=== PATIENT | female | born 1995 | race African-American/Black ===

== ENCOUNTER 2017-10-15 07:15 | Emergency (ER) | payer OTHER ==
[~2017-10-15] VITALS: Ht 170.2 cm; Wt 59.0 kg
--- NOTE | 2017-10-15 07:35 | PHYS DOC ---
Adult General Chief Complaint Chief Complaint: ABDOMINAL PAIN HPI HPI Patient is a 22 year old female presents to the ED complaining of abdominal pain for 2 weeks. States the pain feels all over. Describes it as crampy. Rates it as 4-10. Associated symptoms include constipation. States she has a history of constipation. Last stool was 4-5 days ago. Recently diagnosed with a UTI a few days ago at a urgent care. LMP was Sep 14. States the stool was hard. Denies dysuria, hematuria, blood in stool, chest pain, shortness of breath, dizziness, weakness, n/v, fever or flu like symptoms. Review of Systems Review of Systems Constitutional: Denies fever or chills [] Eyes: Denies change in visual acuity, redness, or eye pain [] HENT: Denies nasal congestion or sore throat [] Respiratory: Denies cough or shortness of breath [] Cardiovascular: No additional information not addressed in HPI [] GI: Complains of abdominal pain. Denies nausea, vomiting, bloody stools or diarrhea [] : Denies dysuria or hematuria [] Musculoskeletal: Denies back pain or joint pain [] Integument: Denies rash or skin lesions [] Neurologic: Denies headache, focal weakness or sensory changes [] Endocrine: Denies polyuria or polydipsia [] All other systems were reviewed and found to be within normal limits, except as documented in this note. Current Medications Current Medications Current Medications Medications (Trade) Dose Ordered Sig/Khadar Start Time Stop Time Status Last Admin Dose Admin Ceftriaxone Sodium 50 ml @ 100 mls/hr 1X ONCE 10/15/17 08:15 10/15/17 08:44 DC 10/15/17 08:26 100 MLS/HR Famotidine (Pepcid Vial) 20 mg 1X ONCE 10/15/17 08:00 10/15/17 08:01 DC 10/15/17 07:58 20 MG Allergies Allergies Allergies Coded Allergies Type Severity Reaction Last Updated Verified No Known Drug Allergies 10/15/17 No Physical Exam Physical Exam Constitutional: Well developed, well nourished, no acute distress, non-toxic appearance. [] HENT: Normocephalic, atraumatic, bilateral external ears normal, oropharynx moist, no oral exudates, nose normal. [] Eyes: PERRLA, EOMI, conjunctiva normal, no discharge. [] Neck: Normal range of motion, no tenderness, supple, no stridor. [] Cardiovascular:Heart rate regular rhythm, no murmur [] Lungs & Thorax: Bilateral breath sounds clear to auscultation [] Abdomen: Bowel sounds normal, soft, no tenderness, no masses, no pulsatile masses. [] Skin: Warm, dry, no erythema, no rash. [] Back: No tenderness, no CVA tenderness. [] Extremities: No tenderness, no cyanosis, no clubbing, ROM intact, no edema. [] Neurologic: Alert and oriented X 3, normal motor function, normal sensory function, no focal deficits noted. [] Psychologic: Affect normal, judgement normal, mood normal. [] Current Patient Data Vital Signs Vital Signs Date Time Temp Pulse Resp B/P (MAP) Pulse Ox O2 Delivery O2 Flow Rate FiO2 10/15/17 08:04 91 106/64 (78) 98 Room Air 10/15/17 07:15 98.0 16 98.0 Lab Values Laboratory Tests Test 10/15/17 07:20 10/15/17 07:24 10/15/17 07:40 Urine Collection Type Unknown Urine Color Angelic Urine Clarity Cloudy Urine pH 6.0 Urine Specific [place] >=1.030 Urine Protein 100 mg/dL (NEG-TRACE) Urine Glucose (UA) Negative mg/dL (NEG) Urine Ketones (Stick) Trace mg/dL (NEG) Urine Blood Moderate (NEG) Urine Nitrite Positive (NEG) Urine Bilirubin Small (NEG) Urine Urobilinogen Dipstick 1.0 mg/dL (0.2 mg/dL) Urine Leukocyte Esterase Large (NEG) Urine RBC 3-5 /HPF (0-2) Urine WBC >40 /HPF (0-4) Urine Squamous Epithelial Cells Few /LPF Urine Bacteria Mod /HPF (0-FEW) Urine Mucus Mod /LPF POC Urine HCG, Qualitative Hcg negative (Negative) White Blood Count 5.9 x10^3/uL (4.0-11.0) Red Blood Count 4.40 x10^6/uL (3.50-5.40) Hemoglobin 12.4 g/dL (12.0-15.5) Hematocrit 36.5 % (36.0-47.0) Mean Corpuscular Volume 83 fL (79-100) Mean Corpuscular Hemoglobin 28 pg (25-35) Mean Corpuscular Hemoglobin Concent 34 g/dL (31-37) Red Cell Distribution Width 12.7 % (11.5-14.5) Platelet Count 211 x10^3/uL (140-400) Sodium Level 138 mmol/L (136-145) Potassium Level 3.7 mmol/L (3.5-5.1) Chloride Level 104 mmol/L (98-107) Carbon Dioxide Level 27 mmol/L (21-32) Anion Gap 7 (6-14) Blood Urea Nitrogen 10 mg/dL (7-20) Creatinine 0.8 mg/dL (0.6-1.0) Estimated GFR (Cockcroft-Gault) 109.6 BUN/Creatinine Ratio 13 (6-20) Glucose Level 94 mg/dL (70-99) Calcium Level 8.9 mg/dL (8.5-10.1) Total Bilirubin 0.6 mg/dL (0.2-1.0) Aspartate Amino Transferase (AST) 11 U/L (15-37) L Alanine Aminotransferase (ALT) 13 U/L (14-59) L Alkaline Phosphatase 48 U/L (46-116) Total Protein 7.5 g/dL (6.4-8.2) Albumin 3.5 g/dL (3.4-5.0) Albumin/Globulin Ratio 0.9 (1.0-1.7) L Lipase 101 U/L (73-393) Laboratory Tests 10/15/17 07:40 Laboratory Tests 10/15/17 07:40 EKG EKG [] Radiology/Procedures Radiology/Procedures PROCEDURE: ACUTE ABDOMEN SERIES Acute abdomen series with chest, 3 views, 10/15/2017: History: Lower abdominal pain and nausea The abdominal gas pattern is unremarkable without evidence of obstruction. No free air is seen in the abdomen. There is no evidence of organomegaly or abnormal abdominal calcification. The heart size is normal. The lungs are clear. There is no evidence of pleural fluid. A minimal thoracic scoliosis may be positional. IMPRESSION: No acute abdominal abnormality is detected. Course & Med Decision Making Course & Med Decision Making Pertinent Labs and Imaging studies reviewed. (See chart for details) []Rocephin given in ED for urinary tract infection. Patient taking bactrim outpatient. Labs and imaging discussed. Patient's pain improved. Vital stable, no acute distress. On reexamination, abdomen is soft nontender nondistended. No peritoneal signs. Tolerating by mouth. Discussed follow-up with GI this week. Provided contact information/education. Discussed reasons to return to the ED. Patient understands and agrees with plan. Family at bedside. Dragon Disclaimer Dragon Disclaimer This electronic medical record was generated, in whole or in part, using a voice recognition dictation system. Departure Departure Impression: Primary Impression: Urinary tract infection Additional Impression: Constipation Disposition: 01 HOME, SELF-CARE Condition: IMPROVED Referrals: TANNER MIRZA MD Patient Instructions: Constipation, Adult, Urinary Tract Infection Scripts Polyethylene Glycol 3350 (MIRALAX) 17 Gm Powd.pack 1 PACKET PO DAILY, #30 PACKET 0 Refills Prov: NE CASTANEDA 10/15/17 Problem Qualifiers NE CASTANEDA Oct 15, 2017 07:35
[2017-10-15 07:36] LABS: BILIRUBIN,URINE SMALL (NEG); GLUCOSE,URINE NEGATIVE (NEG); NITRITE,URINE POSITIVE (NEG); PROTEIN,URINE 100 mg/dL (NEG-TRACE)
[2017-10-15 07:50] LABS: BACTERIA,URINE MOD /HPF (0-FEW); SQUAMOUS EPITHELIAL CELL,UR FEW /LPF; WBC,URINE >40 /HPF (0-4)
[2017-10-15 07:51] LABS: HEMATOCRIT 36.5 % (36.0-47.0); HEMOGLOBIN 12.4 g/dL (12.0-15.5); RED BLOOD COUNT 4.4 x10^6/uL (3.50-5.40); RED CELL DISTRIBUTION WIDTH 12.7 % (11.5-14.5); WHITE BLOOD COUNT 5.9 x10^3/uL (4.0-11.0)
[2017-10-15 07:59] LABS: CALCIUM 8.9 mg/dL (8.5-10.1); CREATININE 0.8 mg/dL (0.6-1.0); GFR 109.6; POTASSIUM 3.7 mmol/L (3.5-5.1)
[2017-10-15] MEDS ORDERED: FAMOTIDINE 20 MG/2 ML VIAL IVP ONE (08:00)
--- NOTE | 2017-10-15 08:00 | RAD ---
Acute abdomen series with chest, 3 views, 10/15/2017: History: Lower abdominal pain and nausea The abdominal gas pattern is unremarkable without evidence of obstruction. No free air is seen in the abdomen. There is no evidence of organomegaly or abnormal abdominal calcification. The heart size is normal. The lungs are clear. There is no evidence of pleural fluid. A minimal thoracic scoliosis may be positional. IMPRESSION: No acute abdominal abnormality is detected.
[2017-10-15 08:04] VITALS: BP 106/64
[2017-10-15 08:05] LABS: ALBUMIN 3.5 g/dL (3.4-5.0); ALBUMIN/GLOBULIN RATIO 0.9 (1.0-1.7); TOTAL BILIRUBIN 0.6 mg/dL (0.2-1.0); TOTAL PROTEIN 7.5 g/dL (6.4-8.2)
[2017-10-15] MEDS ORDERED: POLY17PO29 PO (08:20)
== END 2017-10-15 09:00 | disposition home or self-care (01) ==
LOC: ER 07:15
DX: N39.0 Urinary tract infection, site not specified (principal); K59.00 Constipation, unspecified
CPT/HCPCS: 36415; 74022; 80053; 81001; 81025; 83690; 85027; 96365; 96375; 99285; J0690; S0028; 99284-25

== ENCOUNTER 2017-10-16 14:52 | Inpatient (IN) | payer OTHER ==
[2017-10-16] VITALS (12 sets, daily range): BP systolic 104–122; BP diastolic 58–79
[~2017-10-16] VITALS: Ht 172.7 cm; Wt 57.2 kg
[~2017-10-16 14:52] MED LIST: POLY17PO29 PO
[2017-10-16] MEDS ORDERED: HYDROcodone/APAP 5/325MG 1 TAB TABLET PO ONE (15:15)
[2017-10-16] MEDS ORDERED: KETOROLAC 30 MG/ML INJ. IV ONE (15:15)
--- NOTE | 2017-10-16 15:16 | EKG ---
[facility] [address] [place] [address] Test Date: 2017-10-16 Test Time: 15:01:59 Pat Name: MELE FRANKEL Department: Room: Gender: F [employer] Consultant: : 1995 Requested By: GAVIN PATEL Order Number: [id number] Reading MD: Measurements Intervals [place] Rate: 104 P: -90 RI: 106 QRS: 56 QRSD: 94 T: 46 QT: 318 QTc: 424 Interpretive Statements SINUS TACHYCARDIA INCOMPLETE RIGHT BUNDLE BRANCH BLOCK T ABNORMALITY IN ANTEROSEPTAL LEADS ABNORMAL ECG No previous ECG available for comparison
[2017-10-16 15:30] LABS: BASO % 0 % (0-3); EOS % 3 % (0-3); HEMATOCRIT 36.4 % (36.0-47.0); HEMOGLOBIN 12.2 g/dL (12.0-15.5); LYMPH # 1.5 x10^3/uL (1.0-4.8); LYMPH % 24 % (24-48); MEAN CORPUSCULAR HEMOGLOBIN 28 pg (25-35); MEAN CORPUSCULAR HGB CONC 34 g/dL (31-37); MEAN CORPUSCULAR VOLUME 83 fL (79-100); MONO % 7 % (0-9); NEUT % 66 % (31-73); PLATELET COUNT 217 x10^3/uL (140-400); RED BLOOD COUNT 4.39 x10^6/uL (3.50-5.40); RED CELL DISTRIBUTION WIDTH 12.6 % (11.5-14.5); WHITE BLOOD COUNT 6.3 x10^3/uL (4.0-11.0)
--- NOTE | 2017-10-16 15:30 | PHYS DOC ---
Past Medical History Past Medical History: No Pertinent History Past Surgical History: No Surgical History Alcohol Use: None Drug Use: None Adult General Chief Complaint Chief Complaint: CHEST PAIN-NON CARDIAC NATURE HPI HPI Patient is a 22 year old female presenting to the emergency department for evaluation of right-sided sharp chest pain that has been going on for weeks however it is worse since yesterday. She says the pain is sharp right lower chest and associated with nausea but no fevers chills vomiting shortness of breath. She says that she has not been coughing and that she has been in her usual state of health except she is taking an antibiotic currently. She says it hurts when she moves in certain positions such as bending over makes the pain worse. She says that she is healthy and takes no medications except for the antibiotic and control. She is in no obvious distress with normal vital signs except mild tachycardia at 105. Review of Systems Review of Systems Constitutional: Denies fever or chills [] HENT: Denies nasal congestion or sore throat [] Respiratory: Denies cough or shortness of breath [] Cardiovascular: + CP GI: Denies abdominal pain. + nausea. No vomiting, bloody stools or diarrhea [] All other systems were reviewed and found to be within normal limits, except as documented in this note. Current Medications Current Medications Current Medications Medications (Trade) Dose Ordered Sig/Khadar Start Time Stop Time Status Last Admin Dose Admin Acetaminophen/ Hydrocodone Bitart (Lortab 5/325) 1 tab 1X ONCE 10/16/17 15:15 10/16/17 15:16 DC 10/16/17 15:25 1 TAB Fentanyl Citrate (Fentanyl 2ml Vial) 50 mcg PRN Q2HR PRN 10/16/17 18:00 10/17/17 17:59 Heparin Sodium (Porcine) (Heparin Sodium) 900 unit PRN Q6HRS PRN 10/16/17 18:00 Heparin Sodium/ Dextrose 500 ml @ 0 mls/hr CONT PRN 10/16/17 18:00 10/16/17 18:13 0 MLS/HR Info (Anti-Coagulation Monitoring By Pharmacy) 1 each PRN DAILY PRN 10/16/17 18:00 Info (Do NOT chart on this entry -- for MONITORING) 1 each PRN DAILY PRN 10/16/17 16:45 10/18/17 16:44 Iohexol (Omnipaque 300 Mg/ml) 75 ml 1X ONCE 10/16/17 16:45 10/16/17 16:46 DC 10/16/17 17:03 75 ML Ketorolac Tromethamine (Toradol) 30 mg 1X ONCE 10/16/17 15:15 10/16/17 15:16 DC 10/16/17 15:26 30 MG Ondansetron HCl (Zofran) 4 mg PRN Q8HRS PRN 10/16/17 18:00 10/17/17 17:59 Allergies Allergies Allergies Coded Allergies Type Severity Reaction Last Updated Verified No Known Drug Allergies 10/15/17 No Physical Exam Physical Exam Constitutional: Well developed, well nourished, no acute distress, non-toxic appearance. [] Cardiovascular:Heart rate regular rhythm, no murmur [] Lungs & Thorax: Bilateral breath sounds clear to auscultation. + R lower chest ttp. Abdomen: Bowel sounds normal, soft, no tenderness, no masses, no pulsatile masses. [] Current Patient Data Vital Signs Vital Signs Date Time Temp Pulse Resp B/P (MAP) Pulse Ox O2 Delivery O2 Flow Rate FiO2 10/16/17 17:40 95 22 100/69 (79) 100 Room Air 10/16/17 14:54 98.0 98.0 Lab Values Laboratory Tests Test 10/16/17 15:20 White Blood Count 6.3 x10^3/uL (4.0-11.0) Red Blood Count 4.39 x10^6/uL (3.50-5.40) Hemoglobin 12.2 g/dL (12.0-15.5) Hematocrit 36.4 % (36.0-47.0) Mean Corpuscular Volume 83 fL (79-100) Mean Corpuscular Hemoglobin 28 pg (25-35) Mean Corpuscular Hemoglobin Concent 34 g/dL (31-37) Red Cell Distribution Width 12.6 % (11.5-14.5) Platelet Count 217 x10^3/uL (140-400) Neutrophils (%) (Auto) 66 % (31-73) Lymphocytes (%) (Auto) 24 % (24-48) Monocytes (%) (Auto) 7 % (0-9) Eosinophils (%) (Auto) 3 % (0-3) Basophils (%) (Auto) 0 % (0-3) Neutrophils # (Auto) 4.2 x10^3uL (1.8-7.7) Lymphocytes # (Auto) 1.5 x10^3/uL (1.0-4.8) Monocytes # (Auto) 0.4 x10^3/uL (0.0-1.1) Eosinophils # (Auto) 0.2 x10^3/uL (0.0-0.7) Basophils # (Auto) 0.0 x10^3/uL (0.0-0.2) Prothrombin Time 13.3 SEC (11.7-14.0) Prothrombin Time INR 1.1 (0.8-1.1) PTT 27 SEC (24-38) D-Dimer (Liz) 2.03 ug/mlFEU (0.00-0.50) H Sodium Level 140 mmol/L (136-145) Potassium Level 3.4 mmol/L (3.5-5.1) L Chloride Level 104 mmol/L (98-107) Carbon Dioxide Level 25 mmol/L (21-32) Anion Gap 11 (6-14) Blood Urea Nitrogen 9 mg/dL (7-20) Creatinine 0.9 mg/dL (0.6-1.0) Estimated GFR (Cockcroft-Gault) 95.6 BUN/Creatinine Ratio 10 (6-20) Glucose Level 112 mg/dL (70-99) H Calcium Level 8.9 mg/dL (8.5-10.1) Magnesium Level 2.1 mg/dL (1.8-2.4) Total Bilirubin 0.6 mg/dL (0.2-1.0) Aspartate Amino Transferase (AST) 11 U/L (15-37) L Alanine Aminotransferase (ALT) 12 U/L (14-59) L Alkaline Phosphatase 55 U/L (46-116) Troponin I Quantitative < 0.017 ng/mL (0.000-0.055) Total Protein 7.7 g/dL (6.4-8.2) Albumin 3.5 g/dL (3.4-5.0) Albumin/Globulin Ratio 0.8 (1.0-1.7) L Lipase 129 U/L (73-393) Laboratory Tests 10/16/17 15:20 Laboratory Tests 12/7/17 15:20 EKG EKG Sinus tachycardia at 105 bpm with incomplete right bundle branch block with inverted T waves in leads V1 through V3. Radiology/Procedures Radiology/Procedures Portable chest, 10/16/2017: History: Right-sided chest pain The heart size and pulmonary vascularity are normal. The lungs are clear. There is no evidence of pleural fluid. IMPRESSION: No acute cardiopulmonary abnormality is detected. DICTATED and SIGNED BY: RACHNA LIRA MD DATE: 10/16/17 1528 Course & Med Decision Making Course & Med Decision Making Given patient is mildly tachycardic and on control she will get labs including d-dimer and be treated with Toradol as this is likely more of a pleurisy. Patient had a positive d-dimer so CT angios was obtained which revealed bilateral subsegmental PE with right lower lobe infarct. I spoke to the hospitalist on-call, Dr. Solorzano and he agreed to admit patient and asked me to order bilateral lower external ear ultrasound heparin drip and admit her to the ICU. And is nontoxic in her vital signs are improving is now her heart rate is 90 and her oxygen continues to be 100%. Patient admitted to ICU in guarded condition. Dragon Disclaimer Dragon Disclaimer This electronic medical record was generated, in whole or in part, using a voice recognition dictation system. Departure Departure Impression: Primary Impression: Pulmonary embolism Disposition: ADMITTED INPATIENT Admitting Physician: Other (MERARI) Condition: GUARDED Referrals: ROSEANNA RAMIREZ (PCP) Problem Qualifiers Primary Impression: Pulmonary embolism Pulmonary embolism type: other Chronicity: acute Acute cor pulmonale presence: without acute cor pulmonale Qualified Codes: I26.99 - Other pulmonary embolism without acute cor pulmonale GAVIN PATEL DO Oct 16, 2017 15:30
[2017-10-16 15:39] LABS: INR 1.1 (0.8-1.1); PROTHROMBIN TIME PATIENT 13.3 SEC (11.7-14.0)
[2017-10-16 15:45] LABS: CALCIUM 8.9 mg/dL (8.5-10.1); CREATININE 0.9 mg/dL (0.6-1.0); GFR 95.6; POTASSIUM 3.4 mmol/L (3.5-5.1)
[2017-10-16 15:52] LABS: ALBUMIN 3.5 g/dL (3.4-5.0); ALBUMIN/GLOBULIN RATIO 0.8 (1.0-1.7); MAGNESIUM 2.1 mg/dL (1.8-2.4); TOTAL BILIRUBIN 0.6 mg/dL (0.2-1.0); TOTAL PROTEIN 7.7 g/dL (6.4-8.2)
[2017-10-16] MEDS ORDERED: CONTRAST GIVEN MC PRN (16:45)
[2017-10-16] MEDS ORDERED: IOHEXOL 300 MG/ML 100ML VIAL. IV ONE (16:45)
--- NOTE | 2017-10-16 17:41 | RAD ---
CT CHEST WITH CONTRAST, PULMONARY ANGIOGRAM CT ABDOMEN AND PELVIS WITH CONTRAST History: Shortness of air, chest pain, elevated d-dimer, right upper quadrant pain Comparison: None. Technique: Helical CT of the chest was performed after the administration of 75 cc of Omni 300 intravenous contrast according to PE protocol. Axial and coronal reconstructions were obtained. 3-D MIP images were constructed to better evaluate the pulmonary arteries. Helical CT of the abdomen and pelvis was then obtained with coronal and sagittal reformats provided. PQRS compliance statement: One or more of the following individualized dose reduction techniques were utilized for this examination: 1. Automated exposure control 2. Adjustment of the mA and/or kV according to patient size 3. Use of iterative reconstruction technique Findings: Pulmonary arteries are adequately opacified. There is intraluminal filling defects seen within all of the proximal segmental arteries of the right lower lobe, and portions of the subsegmental arteries, with some occlusion seen within the more anterior lateral subsegmental arteries of the right lower lobe. Intraluminal filling defect is seen within a posterior right upper lobe segmental artery, nonocclusive. Intraluminal filling defect is also seen within a posterior basilar left lower lobe subsegmental artery. No filling defects are seen within the remainder of the left lung. Thoracic aorta is normal in caliber. Heart is normal in size without pericardial effusion. No significant mediastinal lymphadenopathy is appreciated. Prominent superior right hilar lymph nodes are present. There is groundglass opacity present within the inferior lateral right lower lobe, likely represents early infarct given occlusive appearing pulmonary embolus extending to this region. A rounded groundglass opacity is present within the central inferior left upper lobe, may represent inflammatory etiology. Remainder of the lungs are clear. No pleural effusion or pneumothorax is present. Central airways remain patent. Overlying soft tissues and visualized osseous structures of the thorax demonstrate no acute or suspicious finding. The liver, gallbladder, spleen, pancreas, adrenal glands, and kidneys demonstrate no focal abnormality. GI tract demonstrates no dilated bowel loops to suggest obstruction. Some formed fecal material is present within the colon. Appendix appears partially visualized, without adjacent inflammatory changes present. Uterus and bilateral adnexa demonstrate no focal abnormality. Urinary bladder is unremarkable. Aorta is normal in caliber. Portal and splenic veins appear patent. No intra-abdominal or pelvic free fluid, free air or significant lymphadenopathy is seen. Overlying soft tissues and visualized osseous structures demonstrate no acute or suspicious finding. IMPRESSION: 1. Bilateral pulmonary emboli, detailed above, involving bilateral segmental and subsegmental arteries. Some early pulmonary infarct seen in the lateral inferior right lower lobe. 2. No acute intra-abdominal or pelvic process seen. Findings were discussed with the ER physician, Dr. Aleman, at 17:38 on 10/16/2017. Electronically signed by: Janessa Flores MD (10/16/2017 5:38 PM) [facility]
[2017-10-16] MEDS ORDERED: HEPARIN for IV BOLUS 10,000 UNIT/10 ML VIAL. IV ONE (18:00)
[2017-10-16] MEDS ORDERED: HEPARIN for IV BOLUS 10,000 UNIT/10 ML VIAL. IV PRN ×2 (18:00)
[2017-10-16] MEDS ORDERED: HEPARIN 25,000UTS/500ML PREMIX 500 ML IV PRN (18:00)
[2017-10-16] MEDS ORDERED: ANTI-COAG MONITOR BY PHARMACY. MC PRN (18:00)
[2017-10-16] MEDS ORDERED: ONDANSETRON PF 4 MG/2 ML VIAL. IV PRN (18:00)
--- NOTE | 2017-10-16 18:53 | RAD ---
EXAM: ULTRASOUND Bilateral Lower extremity venous Doppler. HISTORY: Pulmonary embolism. COMPARISON: CTA chest 10/16/2017 FINDINGS: Grayscale and Doppler analysis of the Bilateral Lower extremity deep venous systems was performed with graded compression and augmentation. The bilateral common femoral, femoral, and popliteal veins are widely patent with normal color Doppler imaging. Limited images of the bilateral calf veins are unremarkable. Impression: No evidence of bilateral lower extremity DVT. Electronically signed by: Bernardo Walton MD (10/16/2017 6:51 PM) [facility]
--- NOTE | 2017-10-16 19:32 | PDOC1 ---
History and Physical Date of Admission Date of Admission DATE: 10/16/17 TIME: 19:31 Identification/Chief Complaint Chief Complaint CHEST PAIN RLL WITH DEEP BREATH Problems: History of Present Illness History of Present Illness SEEN IN ER WITH PE ON CTA CHEST Past Medical History Cardiovascular: No pertinent hx Pulmonary: No pertinent hx GI: No pertinent hx Endocrine: No pertinent hx Dermatology: No pertinent hx Past Surgical History Past Surgical History: No pertinent history Family History Family History GRANDMOTHER HAD A PE Social History Smoke: No ALCOHOL: none Drugs: None Current Problem List Problem List Problems Medical Problems: (1) Pulmonary embolism Status: Acute Problems: Current Medications Current Medications Current Medications Ketorolac Tromethamine (Toradol) 30 mg 1X ONCE IV Last administered on 15:26; Start 10/16/17 at 15:15; Stop 10/16/17 at 15:16; Status DC Acetaminophen/ Hydrocodone Bitart (Lortab 5/325) 1 tab 1X ONCE PO Last administered on 10/16/17 15:25; Start 10/16/17 at 15:15; Stop 10/16/17 at 15:16 ; Status DC Iohexol (Omnipaque 300 Mg/ml) 75 ml 1X ONCE IV Last administered on 10/16/17 17:03; Start 10/16/17 at 16:45; Stop 10/16/17 at 16:46; Status DC Info (Do NOT chart on this entry -- for MONITORING) 1 each PRN DAILY PRN MC SEE COMMENTS; Start 10/16/17 at 16:45; Stop 10/18/17 at 16:44 Heparin Sodium (Porcine) (Heparin Sodium) 4,700 unit 1X ONCE IV Last administered on 10/16/17 18:11; Start 10/16/17 at 18:00; Stop 10/16/17 at 18:01 ; Status DC Heparin Sodium/ Dextrose 500 ml @ 0 mls/hr CONT PRN IV SEE I/O RECORD Last administered on 10/16/17 18:13; Start 10/16/17 at 18:00 Heparin Sodium (Porcine) (Heparin Sodium) 1,800 unit PRN Q6HRS PRN IV FOR UFH LEVEL LESS THAN 0.2; Start 10/16/17 at 18:00 Heparin Sodium (Porcine) (Heparin Sodium) 900 unit PRN Q6HRS PRN IV FOR UFH LEVEL 0.2 - 0.29; Start 10/16/17 at 18:00 Ondansetron HCl (Zofran) 4 mg PRN Q8HRS PRN IV NAUSEA/VOMITING; Start 10/16/17 at 18:00; Stop 10/17/17 at 17:59 Fentanyl Citrate (Fentanyl 2ml Vial) 50 mcg PRN Q2HR PRN IV PAIN; Start at 18:00; Stop 10/17/17 at 17:59 Info (Anti-Coagulation Monitoring By Pharmacy) 1 each PRN DAILY PRN MC SEE COMMENTS; Start 10/16/17 at 18:00 Active Scripts Active Miralax (Polyethylene Glycol 3350) 17 Gm Powd.pack 1 Packet PO DAILY Allergies Allergies: Coded Allergies: No Known Drug Allergies (Unverified , 10/15/17) Physical Exam Physical Exam CC hurts when she moves in certain positions such as bending over makes the pain worse. She says that she is healthy and takes no medications except for the antibiotic and control. She is in no obvious distress with normal vital signs except mild tachycardia at 105. Review of Systems Review of Systems Constitutional: Denies fever or chills [] HENT: Denies nasal congestion or sore throat [] Respiratory: Denies cough or shortness of breath [] Cardiovascular: + CP GI: Denies abdominal pain. + nausea. No vomiting, bloody stools or diarrhea [] 14 PT ROS OTHERWISE NEGN systems were reviewed and found to be within normal limits, except as documented in this note. Current Medications Current Medications BCP Current Medications Medications (Trade) Dose Ordered Sig/Khadar Start Time Stop Time Status Last Admin Dose Admin Acetaminophen/ Hydrocodone Bitart (Lortab 5/325) 1 tab 1X ONCE 10/16/17 15:15 10/16/17 15:16 DC 10/16/17 15:25 1 TAB Fentanyl Citrate (Fentanyl 2ml Vial) 50 mcg PRN Q2HR PRN 10/16/17 18:00 10/17/17 17:59 Heparin Sodium (Porcine) (Heparin Sodium) 900 unit PRN Q6HRS PRN 10/16/17 18:00 Heparin Sodium/ Dextrose 500 ml @ 0 mls/hr CONT PRN 10/16/17 18:00 10/16/17 18:13 0 MLS/HR Info (Anti-Coagulation Monitoring By Pharmacy) 1 each PRN DAILY PRN 10/16/17 18:00 Info (Do NOT chart on this entry -- for MONITORING) 1 each PRN DAILY PRN 10/16/17 16:45 10/18/17 16:44 Iohexol (Omnipaque 300 Mg/ml) 75 ml 1X ONCE 10/16/17 16:45 10/16/17 16:46 DC 10/16/17 17:03 75 ML Ketorolac Tromethamine (Toradol) 30 mg 1X ONCE 10/16/17 15:15 10/16/17 15:16 DC 10/16/17 15:26 30 MG Ondansetron HCl (Zofran) 4 mg PRN Q8HRS PRN 10/16/17 18:00 10/17/17 17:59 Allergies Allergies Allergies Coded Allergies Type Severity Reaction Last Updated Verified No Known Drug Allergies 10/15/17 No Physical Exam Physical Exam Constitutional: Well developed, well nourished, no acute distress, non-toxic appearance. [] Cardiovascular:Heart rate regular rhythm, no murmur [] Lungs & Thorax: Bilateral breath sounds clear to auscultation. + R lower chest ttp. Abdomen: Bowel sounds normal, soft, no tenderness, no masses, no pulsatile masses. [] Current Patient Data General: Alert, Oriented X3, Cooperative, mild distress HEENT: Atraumatic, EOMI, Mucous membr. moist/pink Lungs: Clear to auscultation Heart: no gallops Cardiovascular: S1, S2 Breasts: Not examined Abdomen: Normal bowel sounds, Soft, No tenderness Rectal Exam: not examined Extremities: No clubbing, No cyanosis, No edema, No tenderness/swelling Neuro: Normal speech, Normal tone, Cranial nerves 3-12 NL Psych/Mental Status: Mental status NL Vitals Vitals Vital Signs Date Time Temp Pulse Resp B/P (MAP) Pulse Ox O2 Delivery O2 Flow Rate FiO2 10/16/17 18:10 85 18 111/65 (80) 99 Room Air 10/16/17 14:[address] CHEST WITH CONTRAST, PULMONARY ANGIOGRAM CT ABDOMEN AND PELVIS WITH CONTRAST History: Shortness of air, chest pain, elevated d-dimer, right upper quadrant pain Comparison: None. Technique: Helical CT of the chest was performed after the administration of 75 cc of Omni 300 intravenous contrast according to PE protocol. Axial and coronal reconstructions were obtained. 3-D MIP images were constructed to better evaluate the pulmonary arteries. Helical CT of the abdomen and pelvis was then obtained with coronal and sagittal reformats provided. PQRS compliance statement: One or more of the following individualized dose reduction techniques were utilized for this examination: 1. Automated exposure control 2. Adjustment of the mA and/or kV according to patient size 3. Use of iterative reconstruction technique Findings: Pulmonary arteries are adequately opacified. There is intraluminal filling defects seen within all of the proximal segmental arteries of the right lower lobe, and portions of the subsegmental arteries, with some occlusion seen within the more anterior lateral subsegmental arteries of the right lower lobe. Intraluminal filling defect is seen within a posterior right upper lobe segmental artery, nonocclusive. Intraluminal filling defect is also seen within a posterior basilar left lower lobe subsegmental artery. No filling defects are seen within the remainder of the left lung. Thoracic aorta is normal in caliber. Heart is normal in size without pericardial effusion. No significant mediastinal lymphadenopathy is appreciated. Prominent superior right hilar lymph nodes are present. There is groundglass opacity present within the inferior lateral right lower lobe, likely represents early infarct given occlusive appearing pulmonary embolus extending to this region. A rounded groundglass opacity is present within the central inferior left upper lobe, may represent inflammatory etiology. Remainder of the lungs are clear. No pleural effusion or pneumothorax is present. Central airways remain patent. Overlying soft tissues and visualized osseous structures of the thorax demonstrate no acute or suspicious finding. The liver, gallbladder, spleen, pancreas, adrenal glands, and kidneys demonstrate no focal abnormality. GI tract demonstrates no dilated bowel loops to suggest obstruction. Some formed fecal material is present within the colon. Appendix appears partially visualized, without adjacent inflammatory changes present. Uterus and bilateral adnexa demonstrate no focal abnormality. Urinary bladder is unremarkable. Aorta is normal in caliber. Portal and splenic veins appear patent. No intra-abdominal or pelvic free fluid, free air or significant lymphadenopathy is seen. Overlying soft tissues and visualized osseous structures demonstrate no acute or suspicious finding. IMPRESSION: 1. Bilateral pulmonary emboli, detailed above, involving bilateral segmental and subsegmental arteries. Some early pulmonary infarct seen in the lateral inferior right lower lobe. 2. No acute intra-abdominal or pelvic process seen. PROCEDURE: VENOUS LOWER EXT BILATERAL EXAM: ULTRASOUND Bilateral Lower extremity venous Doppler. HISTORY: Pulmonary embolism. COMPARISON: CTA chest 10/16/2017 FINDINGS: Grayscale and Doppler analysis of the Bilateral Lower extremity deep venous systems was performed with graded compression and augmentation. The bilateral common femoral, femoral, and popliteal veins are widely patent with normal color Doppler imaging. Limited images of the bilateral calf veins are unremarkable. Impression: No evidence of bilateral lower extremity DVT. Electronically signed by: Bernardo Walton MD (10/16/2017 6:51 PM) [facility] Laboratory Tests Test 10/16/17 15:20 White Blood Count 6.3 x10^3/uL (4.0-11.0) Red Blood Count 4.39 x10^6/uL (3.50-5.40) Hemoglobin 12.2 g/dL (12.0-15.5) Hematocrit 36.4 % (36.0-47.0) Mean Corpuscular Volume 83 fL (79-100) Mean Corpuscular Hemoglobin 28 pg (25-35) Mean Corpuscular Hemoglobin Concent 34 g/dL (31-37) Red Cell Distribution Width 12.6 % (11.5-14.5) Platelet Count 217 x10^3/uL (140-400) Neutrophils (%) (Auto) 66 % (31-73) Lymphocytes (%) (Auto) 24 % (24-48) Monocytes (%) (Auto) 7 % (0-9) Eosinophils (%) (Auto) 3 % (0-3) Basophils (%) (Auto) 0 % (0-3) Neutrophils # (Auto) 4.2 x10^3uL (1.8-7.7) Lymphocytes # (Auto) 1.5 x10^3/uL (1.0-4.8) Monocytes # (Auto) 0.4 x10^3/uL (0.0-1.1) Eosinophils # (Auto) 0.2 x10^3/uL (0.0-0.7) Basophils # (Auto) 0.0 x10^3/uL (0.0-0.2) Prothrombin Time 13.3 SEC (11.7-14.0) Prothromb Time International Ratio 1.1 (0.8-1.1) Activated Partial Thromboplast Time 27 SEC (24-38) D-Dimer (Liz) 2.03 ug/mlFEU (0.00-0.50) Sodium Level 140 mmol/L (136-145) Potassium Level 3.4 mmol/L (3.5-5.1) Chloride Level 104 mmol/L (98-107) Carbon Dioxide Level 25 mmol/L (21-32) Anion Gap 11 (6-14) Blood Urea Nitrogen 9 mg/dL (7-20) Creatinine 0.9 mg/dL (0.6-1.0) Estimated GFR (Cockcroft-Gault) 95.6 BUN/Creatinine Ratio 10 (6-20) Glucose Level 112 mg/dL (70-99) Calcium Level 8.9 mg/dL (8.5-10.1) Magnesium Level 2.1 mg/dL (1.8-2.4) Total Bilirubin 0.6 mg/dL (0.2-1.0) Aspartate Amino Transf (AST/SGOT) 11 U/L (15-37) Alanine Aminotransferase (ALT/SGPT) 12 U/L (14-59) Alkaline Phosphatase 55 U/L (46-116) Troponin I Quantitative < 0.017 ng/mL (0.000-0.055) Total Protein 7.7 g/dL (6.4-8.2) Albumin 3.5 g/dL (3.4-5.0) Albumin/Globulin Ratio 0.8 (1.0-1.7) Lipase 129 U/L (73-393) Laboratory Tests Test 10/16/17 15:20 White Blood Count 6.3 x10^3/uL (4.0-11.0) Red Blood Count 4.39 x10^6/uL (3.50-5.40) Hemoglobin 12.2 g/dL (12.0-15.5) Hematocrit 36.4 % (36.0-47.0) Mean Corpuscular Volume 83 fL (79-100) Mean Corpuscular Hemoglobin 28 pg (25-35) Mean Corpuscular Hemoglobin Concent 34 g/dL (31-37) Red Cell Distribution Width 12.6 % (11.5-14.5) Platelet Count 217 x10^3/uL (140-400) Neutrophils (%) (Auto) 66 % (31-73) Lymphocytes (%) (Auto) 24 % (24-48) Monocytes (%) (Auto) 7 % (0-9) Eosinophils (%) (Auto) 3 % (0-3) Basophils (%) (Auto) 0 % (0-3) Neutrophils # (Auto) 4.2 x10^3uL (1.8-7.7) Lymphocytes # (Auto) 1.5 x10^3/uL (1.0-4.8) Monocytes # (Auto) 0.4 x10^3/uL (0.0-1.1) Eosinophils # (Auto) 0.2 x10^3/uL (0.0-0.7) Basophils # (Auto) 0.0 x10^3/uL (0.0-0.2) Prothrombin Time 13.3 SEC (11.7-14.0) Prothromb Time International Ratio 1.1 (0.8-1.1) Activated Partial Thromboplast Time 27 SEC (24-38) D-Dimer (Liz) 2.03 ug/mlFEU (0.00-0.50) Sodium Level 140 mmol/L (136-145) Potassium Level 3.4 mmol/L (3.5-5.1) Chloride Level 104 mmol/L (98-107) Carbon Dioxide Level 25 mmol/L (21-32) Anion Gap 11 (6-14) Blood Urea Nitrogen 9 mg/dL (7-20) Creatinine 0.9 mg/dL (0.6-1.0) Estimated GFR (Cockcroft-Gault) 95.6 BUN/Creatinine Ratio 10 (6-20) Glucose Level 112 mg/dL (70-99) Calcium Level 8.9 mg/dL (8.5-10.1) Magnesium Level 2.1 mg/dL (1.8-2.4) Total Bilirubin 0.6 mg/dL (0.2-1.0) Aspartate Amino Transf (AST/SGOT) 11 U/L (15-37) Alanine Aminotransferase (ALT/SGPT) 12 U/L (14-59) Alkaline Phosphatase 55 U/L (46-116) Troponin I Quantitative < 0.017 ng/mL (0.000-0.055) Total Protein 7.7 g/dL (6.4-8.2) Albumin 3.5 g/dL (3.4-5.0) Albumin/Globulin Ratio 0.8 (1.0-1.7) Lipase 129 U/L (73-393) VTE Prophylaxis Ordered VTE Prophylaxis Devices: Yes VTE Pharmacological Prophylaxi: Yes Assessment/Plan Assessment/Plan Impression: Primary Impression: Pulmonary embolism , bilateral WITH infarction right lower lobe 09 ADMITTED INPATIENT ICU HEPARIN DRIP PULM CONSULT 35 MIN CC TIME Plan Activity: Continue bedrest Diet: Advance to regular Diagnostics: Labs ordered, CT scan GOSIA GAGE MD Oct 16, 2017 19:32
[2017-10-16 20:21] LABS: NEG OBC SER NEG; POS OBC SER POS
[2017-10-16 21:19] LABS: BILIRUBIN,URINE NEGATIVE (NEG); GLUCOSE,URINE NEGATIVE (NEG); NITRITE,URINE NEGATIVE (NEG); PROTEIN,URINE NEGATIVE (NEG-TRACE)
[2017-10-16] MEDS: SMZ/TMP 800/160MG TABLET. PO SCH (21:21)
[2017-10-16 21:29] LABS: BACTERIA,URINE 0 /HPF (0-FEW); RBC,URINE OCC /HPF (0-2); SQUAMOUS EPITHELIAL CELL,UR FEW /LPF
[2017-10-16] MEDS: fentaNYL PF VIAL 100 MCG/2 ML VIAL IV PRN (22:03)
[2017-10-16] MEDS ORDERED: HYDROcodone/APAP 5/325MG 1 TAB TABLET PO PRN (22:30)
[2017-10-16] MEDS: RIVAROXABAN 15 MG TABLET. PO SCH (22:56)
[2017-10-17] VITALS (15 sets, daily range): BP systolic 88–118; BP diastolic 49–68
[2017-10-17 01:18] LABS: BASO % 1 % (0-3); EOS % 4 % (0-3); HEMATOCRIT 35.2 % (36.0-47.0); HEMOGLOBIN 11.7 g/dL (12.0-15.5); LYMPH % 30 % (24-48); MEAN CORPUSCULAR HEMOGLOBIN 28 pg (25-35); MEAN CORPUSCULAR HGB CONC 33 g/dL (31-37); MEAN CORPUSCULAR VOLUME 84 fL (79-100); MONO % 12 % (0-9); NEUT % 54 % (31-73); PLATELET COUNT 193 x10^3/uL (140-400); RED BLOOD COUNT 4.18 x10^6/uL (3.50-5.40); RED CELL DISTRIBUTION WIDTH 12.9 % (11.5-14.5); WHITE BLOOD COUNT 6.7 x10^3/uL (4.0-11.0)
[2017-10-17 01:24] LABS: CALCIUM 8.2 mg/dL (8.5-10.1); CREATININE 0.8 mg/dL (0.6-1.0); GFR 109.6; POTASSIUM 3.9 mmol/L (3.5-5.1)
[2017-10-17] MEDS: fentaNYL PF VIAL 100 MCG/2 ML VIAL IV PRN (05:39)
[2017-10-17] MEDS: RIVAROXABAN 15 MG TABLET. PO SCH (09:00)
[2017-10-17] MEDS: SMZ/TMP 800/160MG TABLET. PO SCH (09:23)
[2017-10-17] MEDS ORDERED: cefTRIAXone IV Push 1 GM VIAL. IVP SCH (12:30)
--- NOTE | 2017-10-17 12:44 | PDOC ---
PROGRESS NOTES Chief Complaint Chief Complaint acute chest pain with pleuris BIlat pulm embolism with infarction embolism, not provoked no DVT seen on LE US History of Present Illness History of Present Illness stop oral contraception heparin gtt, s.p 1 dose Xarelto, which may be great for DC consult heme, would f/u for coagulapaty fontenot Vitals Vitals Vital Signs Date Time Temp Pulse Resp B/P (MAP) Pulse Ox O2 Delivery O2 Flow Rate FiO2 10/17/17 11:00 96 24 113/68 (83) 100 Room Air 10/17/17 08:00 98.3 98.3 Physical Exam General: Alert, Oriented X3, Cooperative, No acute distress, mild distress Heart: Regular rate, No murmurs Abdomen: Normal bowel sounds, Soft, No tenderness Extremities: No clubbing, No cyanosis, No edema, No tenderness/swelling Labs LABS Laboratory Tests Test 10/16/17 15:20 10/16/17 19:50 10/17/17 00:42 10/17/17 08:05 White Blood Count 6.3 x10^3/uL (4.0-11.0) 6.7 x10^3/uL (4.0-11.0) Red Blood Count 4.39 x10^6/uL (3.50-5.40) 4.18 x10^6/uL (3.50-5.40) Hemoglobin 12.2 g/dL (12.0-15.5) 11.7 g/dL (12.0-15.5) Hematocrit 36.4 % (36.0-47.0) 35.2 % (36.0-47.0) Mean Corpuscular Volume 83 fL (79-100) 84 fL (79-100) Mean Corpuscular Hemoglobin 28 pg (25-35) 28 pg (25-35) Mean Corpuscular Hemoglobin Concent 34 g/dL (31-37) 33 g/dL (31-37) Red Cell Distribution Width 12.6 % (11.5-14.5) 12.9 % (11.5-14.5) Platelet Count 217 x10^3/uL (140-400) 193 x10^3/uL (140-400) Neutrophils (%) (Auto) 66 % (31-73) 54 % (31-73) Lymphocytes (%) (Auto) 24 % (24-48) 30 % (24-48) Monocytes (%) (Auto) 7 % (0-9) 12 % (0-9) Eosinophils (%) (Auto) 3 % (0-3) 4 % (0-3) Basophils (%) (Auto) 0 % (0-3) 1 % (0-3) Neutrophils # (Auto) 4.2 x10^3uL (1.8-7.7) 3.6 x10^3uL (1.8-7.7) Lymphocytes # (Auto) 1.5 x10^3/uL (1.0-4.8) 2.0 x10^3/uL (1.0-4.8) Monocytes # (Auto) 0.4 x10^3/uL (0.0-1.1) 0.8 x10^3/uL (0.0-1.1) Eosinophils # (Auto) 0.2 x10^3/uL (0.0-0.7) 0.3 x10^3/uL (0.0-0.7) Basophils # (Auto) 0.0 x10^3/uL (0.0-0.2) 0.0 x10^3/uL (0.0-0.2) Prothrombin Time 13.3 SEC (11.7-14.0) Prothromb Time International Ratio 1.1 (0.8-1.1) Activated Partial Thromboplast Time 27 SEC (24-38) D-Dimer (Liz) 2.03 ug/mlFEU (0.00-0.50) Sodium Level 140 mmol/L (136-145) 137 mmol/L (136-145) Potassium Level 3.4 mmol/L (3.5-5.1) 3.9 mmol/L (3.5-5.1) Chloride Level 104 mmol/L (98-107) 102 mmol/L (98-107) Carbon Dioxide Level 25 mmol/L (21-32) 25 mmol/L (21-32) Anion Gap 11 (6-14) 10 (6-14) Blood Urea Nitrogen 9 mg/dL (7-20) 10 mg/dL (7-20) Creatinine 0.9 mg/dL (0.6-1.0) 0.8 mg/dL (0.6-1.0) Estimated GFR (Cockcroft-Gault) 95.6 109.6 BUN/Creatinine Ratio 10 (6-20) Glucose Level 112 mg/dL (70-99) 88 mg/dL (70-99) Calcium Level 8.9 mg/dL (8.5-10.1) 8.2 mg/dL (8.5-10.1) Magnesium Level 2.1 mg/dL (1.8-2.4) Total Bilirubin 0.6 mg/dL (0.2-1.0) Aspartate Amino Transf (AST/SGOT) 11 U/L (15-37) Alanine Aminotransferase (ALT/SGPT) 12 U/L (14-59) Alkaline Phosphatase 55 U/L (46-116) Troponin I Quantitative < 0.017 ng/mL (0.000-0.055) Total Protein 7.7 g/dL (6.4-8.2) Albumin 3.5 g/dL (3.4-5.0) Albumin/Globulin Ratio 0.8 (1.0-1.7) Lipase 129 U/L (73-393) Serum Test, Qualitative Negative (NEG) Urine Color Angelic Urine Clarity Clear Urine pH 7.0 Urine Specific [place] >=1.030 Urine Protein Negative mg/dL (NEG-TRACE) Urine Glucose (UA) Negative mg/dL (NEG) Urine Ketones (Stick) Negative mg/dL (NEG) Urine Blood Negative (NEG) Urine Nitrite Negative (NEG) Urine Bilirubin Negative (NEG) Urine Urobilinogen Dipstick 1.0 mg/dL (0.2 mg/dL) Urine Leukocyte Esterase Negative (NEG) Urine RBC Occ /HPF (0-2) Urine WBC 5-10 /HPF (0-4) Urine Squamous Epithelial Cells Few /LPF Urine Bacteria 0 /HPF (0-FEW) Urine Mucus Mod /LPF Heparin Anti-Xa Act, Unfractionated > 1.10 IU/mL (0.30-0.70) > 1.10 IU/mL (0.30-0.70) Review of Systems Review of Systems pain with deep breathing eating OK Assessment and Plan Assessmemt and Plan Problems Medical Problems: (1) Pulmonary embolism Status: Acute Problems: Comment Review of Relevant I have reviewed the following items ya (where applicable) has been applied. Labs Laboratory Tests Test 10/16/17 15:20 10/16/17 19:50 10/17/17 00:42 10/17/17 08:05 White Blood Count 6.3 x10^3/uL (4.0-11.0) 6.7 x10^3/uL (4.0-11.0) Red Blood Count 4.39 x10^6/uL (3.50-5.40) 4.18 x10^6/uL (3.50-5.40) Hemoglobin 12.2 g/dL (12.0-15.5) 11.7 g/dL (12.0-15.5) Hematocrit 36.4 % (36.0-47.0) 35.2 % (36.0-47.0) Mean Corpuscular Volume 83 fL (79-100) 84 fL (79-100) Mean Corpuscular Hemoglobin 28 pg (25-35) 28 pg (25-35) Mean Corpuscular Hemoglobin Concent 34 g/dL (31-37) 33 g/dL (31-37) Red Cell Distribution Width 12.6 % (11.5-14.5) 12.9 % (11.5-14.5) Platelet Count 217 x10^3/uL (140-400) 193 x10^3/uL (140-400) Neutrophils (%) (Auto) 66 % (31-73) 54 % (31-73) Lymphocytes (%) (Auto) 24 % (24-48) 30 % (24-48) Monocytes (%) (Auto) 7 % (0-9) 12 % (0-9) Eosinophils (%) (Auto) 3 % (0-3) 4 % (0-3) Basophils (%) (Auto) 0 % (0-3) 1 % (0-3) Neutrophils # (Auto) 4.2 x10^3uL (1.8-7.7) 3.6 x10^3uL (1.8-7.7) Lymphocytes # (Auto) 1.5 x10^3/uL (1.0-4.8) 2.0 x10^3/uL (1.0-4.8) Monocytes # (Auto) 0.4 x10^3/uL (0.0-1.1) 0.8 x10^3/uL (0.0-1.1) Eosinophils # (Auto) 0.2 x10^3/uL (0.0-0.7) 0.3 x10^3/uL (0.0-0.7) Basophils # (Auto) 0.0 x10^3/uL (0.0-0.2) 0.0 x10^3/uL (0.0-0.2) Prothrombin Time 13.3 SEC (11.7-14.0) Prothromb Time International Ratio 1.1 (0.8-1.1) Activated Partial Thromboplast Time 27 SEC (24-38) D-Dimer (Liz) 2.03 ug/mlFEU (0.00-0.50) Sodium Level 140 mmol/L (136-145) 137 mmol/L (136-145) Potassium Level 3.4 mmol/L (3.5-5.1) 3.9 mmol/L (3.5-5.1) Chloride Level 104 mmol/L (98-107) 102 mmol/L (98-107) Carbon Dioxide Level 25 mmol/L (21-32) 25 mmol/L (21-32) Anion Gap 11 (6-14) 10 (6-14) Blood Urea Nitrogen 9 mg/dL (7-20) 10 mg/dL (7-20) Creatinine 0.9 mg/dL (0.6-1.0) 0.8 mg/dL (0.6-1.0) Estimated GFR (Cockcroft-Gault) 95.6 109.6 BUN/Creatinine Ratio 10 (6-20) Glucose Level 112 mg/dL (70-99) 88 mg/dL (70-99) Calcium Level 8.9 mg/dL (8.5-10.1) 8.2 mg/dL (8.5-10.1) Magnesium Level 2.1 mg/dL (1.8-2.4) Total Bilirubin 0.6 mg/dL (0.2-1.0) Aspartate Amino Transf (AST/SGOT) 11 U/L (15-37) Alanine Aminotransferase (ALT/SGPT) 12 U/L (14-59) Alkaline Phosphatase 55 U/L (46-116) Troponin I Quantitative < 0.017 ng/mL (0.000-0.055) Total Protein 7.7 g/dL (6.4-8.2) Albumin 3.5 g/dL (3.4-5.0) Albumin/Globulin Ratio 0.8 (1.0-1.7) Lipase 129 U/L (73-393) Serum Test, Qualitative Negative (NEG) Urine Color Angelic Urine Clarity Clear Urine pH 7.0 Urine Specific [place] >=1.030 Urine Protein Negative mg/dL (NEG-TRACE) Urine Glucose (UA) Negative mg/dL (NEG) Urine Ketones (Stick) Negative mg/dL (NEG) Urine Blood Negative (NEG) Urine Nitrite Negative (NEG) Urine Bilirubin Negative (NEG) Urine Urobilinogen Dipstick 1.0 mg/dL (0.2 mg/dL) Urine Leukocyte Esterase Negative (NEG) Urine RBC Occ /HPF (0-2) Urine WBC 5-10 /HPF (0-4) Urine Squamous Epithelial Cells Few /LPF Urine Bacteria 0 /HPF (0-FEW) Urine Mucus Mod /LPF Heparin Anti-Xa Act, Unfractionated > 1.10 IU/mL (0.30-0.70) > 1.10 IU/mL (0.30-0.70) Laboratory Tests Test 10/16/17 15:20 10/16/17 19:50 10/17/17 00:42 10/17/17 08:05 White Blood Count 6.3 x10^3/uL (4.0-11.0) 6.7 x10^3/uL (4.0-11.0) Red Blood Count 4.39 x10^6/uL (3.50-5.40) 4.18 x10^6/uL (3.50-5.40) Hemoglobin 12.2 g/dL (12.0-15.5) 11.7 g/dL (12.0-15.5) Hematocrit 36.4 % (36.0-47.0) 35.2 % (36.0-47.0) Mean Corpuscular Volume 83 fL (79-100) 84 fL (79-100) Mean Corpuscular Hemoglobin 28 pg (25-35) 28 pg (25-35) Mean Corpuscular Hemoglobin Concent 34 g/dL (31-37) 33 g/dL (31-37) Red Cell Distribution Width 12.6 % (11.5-14.5) 12.9 % (11.5-14.5) Platelet Count 217 x10^3/uL (140-400) 193 x10^3/uL (140-400) Neutrophils (%) (Auto) 66 % (31-73) 54 % (31-73) Lymphocytes (%) (Auto) 24 % (24-48) 30 % (24-48) Monocytes (%) (Auto) 7 % (0-9) 12 % (0-9) Eosinophils (%) (Auto) 3 % (0-3) 4 % (0-3) Basophils (%) (Auto) 0 % (0-3) 1 % (0-3) Neutrophils # (Auto) 4.2 x10^3uL (1.8-7.7) 3.6 x10^3uL (1.8-7.7) Lymphocytes # (Auto) 1.5 x10^3/uL (1.0-4.8) 2.0 x10^3/uL (1.0-4.8) Monocytes # (Auto) 0.4 x10^3/uL (0.0-1.1) 0.8 x10^3/uL (0.0-1.1) Eosinophils # (Auto) 0.2 x10^3/uL (0.0-0.7) 0.3 x10^3/uL (0.0-0.7) Basophils # (Auto) 0.0 x10^3/uL (0.0-0.2) 0.0 x10^3/uL (0.0-0.2) Prothrombin Time 13.3 SEC (11.7-14.0) Prothromb Time International Ratio 1.1 (0.8-1.1) Activated Partial Thromboplast Time 27 SEC (24-38) D-Dimer (Liz) 2.03 ug/mlFEU (0.00-0.50) Sodium Level 140 mmol/L (136-145) 137 mmol/L (136-145) Potassium Level 3.4 mmol/L (3.5-5.1) 3.9 mmol/L (3.5-5.1) Chloride Level 104 mmol/L (98-107) 102 mmol/L (98-107) Carbon Dioxide Level 25 mmol/L (21-32) 25 mmol/L (21-32) Anion Gap 11 (6-14) 10 (6-14) Blood Urea Nitrogen 9 mg/dL (7-20) 10 mg/dL (7-20) Creatinine 0.9 mg/dL (0.6-1.0) 0.8 mg/dL (0.6-1.0) Estimated GFR (Cockcroft-Gault) 95.6 109.6 BUN/Creatinine Ratio 10 (6-20) Glucose Level 112 mg/dL (70-99) 88 mg/dL (70-99) Calcium Level 8.9 mg/dL (8.5-10.1) 8.2 mg/dL (8.5-10.1) Magnesium Level 2.1 mg/dL (1.8-2.4) Total Bilirubin 0.6 mg/dL (0.2-1.0) Aspartate Amino Transf (AST/SGOT) 11 U/L (15-37) Alanine Aminotransferase (ALT/SGPT) 12 U/L (14-59) Alkaline Phosphatase 55 U/L (46-116) Troponin I Quantitative < 0.017 ng/mL (0.000-0.055) Total Protein 7.7 g/dL (6.4-8.2) Albumin 3.5 g/dL (3.4-5.0) Albumin/Globulin Ratio 0.8 (1.0-1.7) Lipase 129 U/L (73-393) Serum Test, Qualitative Negative (NEG) Urine Color Angelic Urine Clarity Clear Urine pH 7.0 Urine Specific [place] >=1.030 Urine Protein Negative mg/dL (NEG-TRACE) Urine Glucose (UA) Negative mg/dL (NEG) Urine Ketones (Stick) Negative mg/dL (NEG) Urine Blood Negative (NEG) Urine Nitrite Negative (NEG) Urine Bilirubin Negative (NEG) Urine Urobilinogen Dipstick 1.0 mg/dL (0.2 mg/dL) Urine Leukocyte Esterase Negative (NEG) Urine RBC Occ /HPF (0-2) Urine WBC 5-10 /HPF (0-4) Urine Squamous Epithelial Cells Few /LPF Urine Bacteria 0 /HPF (0-FEW) Urine Mucus Mod /LPF Heparin Anti-Xa Act, Unfractionated > 1.10 IU/mL (0.30-0.70) > 1.10 IU/mL (0.30-0.70) Medications Current Medications Ketorolac Tromethamine (Toradol) 30 mg 1X ONCE IV Last administered on 15:26; Start 10/16/17 at 15:15; Stop 10/16/17 at 15:16; Status DC Acetaminophen/ Hydrocodone Bitart (Lortab 5/325) 1 tab 1X ONCE PO Last administered on 10/16/17 15:25; Start 10/16/17 at 15:15; Stop 10/16/17 at 15:16 ; Status DC Iohexol (Omnipaque 300 Mg/ml) 75 ml 1X ONCE IV Last administered on 10/16/17 17:03; Start 10/16/17 at 16:45; Stop 10/16/17 at 16:46; Status DC Info (Do NOT chart on this entry -- for MONITORING) 1 each PRN DAILY PRN MC SEE COMMENTS; Start 10/16/17 at 16:45; Stop 10/18/17 at 16:44 Heparin Sodium (Porcine) (Heparin Sodium) 4,700 unit 1X ONCE IV Last administered on 10/16/17 18:11; Start 10/16/17 at 18:00; Stop 10/16/17 at 18:01 ; Status DC Heparin Sodium/ Dextrose 500 ml @ 0 mls/hr CONT PRN IV SEE I/O RECORD Last administered on 10/16/17 18:13; Start 10/16/17 at 18:00 Heparin Sodium (Porcine) (Heparin Sodium) 1,800 unit PRN Q6HRS PRN IV FOR UFH LEVEL LESS THAN 0.2; Start 10/16/17 at 18:00 Heparin Sodium (Porcine) (Heparin Sodium) 900 unit PRN Q6HRS PRN IV FOR UFH LEVEL 0.2 - 0.29; Start 10/16/17 at 18:00 Ondansetron HCl (Zofran) 4 mg PRN Q8HRS PRN IV NAUSEA/VOMITING; Start 10/16/17 at 18:00; Stop 10/17/17 at 17:59 Fentanyl Citrate (Fentanyl 2ml Vial) 50 mcg PRN Q2HR PRN IV PAIN Last administered on 10/17/17 05:39; Start 10/16/17 at 18:00; Stop 10/17/17 at 17:59 Info (Anti-Coagulation Monitoring By Pharmacy) 1 each PRN DAILY PRN MC SEE COMMENTS; Start 10/16/17 at 18:00 Trimethoprim/ Sulfamethoxazole (Bactrim Ds) 1 tab BID PO Last administered on 10/17/17 09:23; Start 10/16/17 at 21:00; Stop 10/17/17 at 12:23; Status DC Rivaroxaban (Xarelto) 15 mg BID PO Last administered on 10/16/17 22:56; Start 10/16/17 at 23:00 Acetaminophen/ Hydrocodone Bitart (Lortab 5/325) 1 tab PRN Q4HRS PRN PO SEVERE PAIN Last administered on 10/17/17 00:34; Start 10/16/17 at 22:30 Ceftriaxone Sodium 1 gm/ Dextrose 50 ml @ 100 mls/hr Q24H IV ; Start 10/17/17 at 12:30; Status Cancel Ceftriaxone Sodium (Rocephin) 1 gm Q24H IVP ; Start 10/17/17 at 12:30 Active Scripts Active Miralax (Polyethylene Glycol 3350) 17 Gm Powd.pack 1 Packet PO DAILY Vitals/I & O Vital Sign - Last 24 Hours 10/16/17 10/16/17 10/16/17 10/16/17 14:54 15:25 15:29 15:59 Temp 98.0 98.0 Pulse 110 96 91 Resp 16 19 19 B/P (MAP) 140/79 (99) 121/70 (87) 110/65 (80) Pulse Ox 100 100 99 O2 Delivery Room Air Room Air Room Air Room Air 10/16/17 10/16/17 10/16/17 10/16/17 16:29 17:10 17:40 18:10 Pulse 92 91 95 85 Resp 18 18 22 18 B/P (MAP) 117/65 (82) 114/66 (82) 100/69 (79) 111/65 (80) Pulse Ox 100 100 100 99 O2 Delivery Room Air Room Air Room Air Room Air 10/16/17 10/16/17 10/16/17 10/16/17 19:25 19:30 19:35 19:45 Temp 97.8 97.8 Pulse 80 72 76 Resp 16 22 22 B/P (MAP) 117/63 (81) 120/62 (81) 115/79 (91) Pulse Ox 98 100 100 O2 Delivery Room Air Room Air Room Air Room Air 10/16/17 10/16/17 10/16/17 10/16/17 20:00 20:15 20:30 20:45 Temp 98.0 98.0 Pulse 68 77 70 67 Resp 22 17 19 15 B/P (MAP) 122/68 (86) 120/77 (91) 118/70 (86) 122/67 (85) Pulse Ox 100 100 100 100 O2 Delivery Room Air Room Air Room Air Room Air 10/16/17 10/16/17 10/16/17 10/16/17 21:00 21:30 22:00 22:03 Pulse 79 77 85 Resp 18 16 17 20 B/P (MAP) 109/65 (80) 105/68 (80) 119/68 (85) Pulse Ox 100 100 100 100 O2 Delivery Room Air Room Air Room Air Room Air 10/16/17 10/16/17 10/16/17 10/17/17 23:00 23:59 23:59 00:34 Temp 98.0 98.0 Pulse 72 79 Resp 12 12 29 B/P (MAP) 104/62 (76) 111/58 (75) Pulse Ox 100 100 100 O2 Delivery Room Air Room Air Room Air Room Air 10/17/17 10/17/17 10/17/17 10/17/17 01:00 01:34 02:00 03:00 Pulse 101 84 80 Resp 21 20 10 18 B/P (MAP) 117/66 (83) 118/62 (80) 118/57 (77) Pulse Ox 100 98 98 98 O2 Delivery Room Air Room Air Room Air Room Air 10/17/17 10/17/17 10/17/17 10/17/17 04:00 04:00 05:00 05:39 Temp 98.2 98.2 Pulse 88 80 Resp 22 28 20 B/P (MAP) 88/57 (67) 104/57 (73) Pulse Ox 98 98 98 O2 Delivery Room Air Room Air Room Air Room Air 10/17/17 10/17/17 10/17/17 10/17/17 06:00 06:09 07:00 08:00 Pulse 86 89 Resp 12 12 18 B/P (MAP) 106/60 (75) 95/53 (67) Pulse Ox 97 97 100 O2 Delivery Room Air Room Air Room Air Room Air 10/17/17 10/17/17 10/17/17 10/17/17 08:00 09:00 10:00 11:00 Temp 98.3 98.3 Pulse 98 106 95 96 Resp 18 22 24 24 B/P (MAP) 111/65 (80) 109/60 (76) 113/67 (82) 113/68 (83) Pulse Ox 100 100 100 100 O2 Delivery Room Air Room Air Room Air Room Air Intake and Output 10/16/17 10/16/17 10/17/17 15:00 23:00 07:00 Intake Total 300 ml 720 ml Output Total 400 ml 300 ml Balance -100 ml 420 ml MICHAEL SHEPARD MD Oct 17, 2017 12:44
[2017-10-17] MEDS ORDERED: LIDO:MAALOX:DONNATAL 1:1:1 15 ML SINGLE DOSE SWSW PRN (12:45)
[2017-10-17] MEDS: FAMOTIDINE 20 MG TABLET. PO SCH ×2 (16:01→21:57)
--- NOTE | 2017-10-17 16:39 | PDOC ---
PULMONARY PROGRESS NOTES Vitals Vital Signs Date Time Temp Pulse Resp B/P (MAP) Pulse Ox O2 Delivery O2 Flow Rate FiO2 10/17/17 12:00 98.4 102 22 107/59 (75) 100 Room Air 98.4 Cardiovascular: S1, S2 Labs Laboratory Tests Test 10/16/17 15:20 10/16/17 19:50 10/17/17 00:42 10/17/17 08:05 White Blood Count 6.3 x10^3/uL (4.0-11.0) 6.7 x10^3/uL (4.0-11.0) Red Blood Count 4.39 x10^6/uL (3.50-5.40) 4.18 x10^6/uL (3.50-5.40) Hemoglobin 12.2 g/dL (12.0-15.5) 11.7 g/dL (12.0-15.5) Hematocrit 36.4 % (36.0-47.0) 35.2 % (36.0-47.0) Mean Corpuscular Volume 83 fL (79-100) 84 fL (79-100) Mean Corpuscular Hemoglobin 28 pg (25-35) 28 pg (25-35) Mean Corpuscular Hemoglobin Concent 34 g/dL (31-37) 33 g/dL (31-37) Red Cell Distribution Width 12.6 % (11.5-14.5) 12.9 % (11.5-14.5) Platelet Count 217 x10^3/uL (140-400) 193 x10^3/uL (140-400) Neutrophils (%) (Auto) 66 % (31-73) 54 % (31-73) Lymphocytes (%) (Auto) 24 % (24-48) 30 % (24-48) Monocytes (%) (Auto) 7 % (0-9) 12 % (0-9) Eosinophils (%) (Auto) 3 % (0-3) 4 % (0-3) Basophils (%) (Auto) 0 % (0-3) 1 % (0-3) Neutrophils # (Auto) 4.2 x10^3uL (1.8-7.7) 3.6 x10^3uL (1.8-7.7) Lymphocytes # (Auto) 1.5 x10^3/uL (1.0-4.8) 2.0 x10^3/uL (1.0-4.8) Monocytes # (Auto) 0.4 x10^3/uL (0.0-1.1) 0.8 x10^3/uL (0.0-1.1) Eosinophils # (Auto) 0.2 x10^3/uL (0.0-0.7) 0.3 x10^3/uL (0.0-0.7) Basophils # (Auto) 0.0 x10^3/uL (0.0-0.2) 0.0 x10^3/uL (0.0-0.2) Prothrombin Time 13.3 SEC (11.7-14.0) Prothromb Time International Ratio 1.1 (0.8-1.1) Activated Partial Thromboplast Time 27 SEC (24-38) D-Dimer (Liz) 2.03 ug/mlFEU (0.00-0.50) Sodium Level 140 mmol/L (136-145) 137 mmol/L (136-145) Potassium Level 3.4 mmol/L (3.5-5.1) 3.9 mmol/L (3.5-5.1) Chloride Level 104 mmol/L (98-107) 102 mmol/L (98-107) Carbon Dioxide Level 25 mmol/L (21-32) 25 mmol/L (21-32) Anion Gap 11 (6-14) 10 (6-14) Blood Urea Nitrogen 9 mg/dL (7-20) 10 mg/dL (7-20) Creatinine 0.9 mg/dL (0.6-1.0) 0.8 mg/dL (0.6-1.0) Estimated GFR (Cockcroft-Gault) 95.6 109.6 BUN/Creatinine Ratio 10 (6-20) Glucose Level 112 mg/dL (70-99) 88 mg/dL (70-99) Calcium Level 8.9 mg/dL (8.5-10.1) 8.2 mg/dL (8.5-10.1) Magnesium Level 2.1 mg/dL (1.8-2.4) Total Bilirubin 0.6 mg/dL (0.2-1.0) Aspartate Amino Transf (AST/SGOT) 11 U/L (15-37) Alanine Aminotransferase (ALT/SGPT) 12 U/L (14-59) Alkaline Phosphatase 55 U/L (46-116) Troponin I Quantitative < 0.017 ng/mL (0.000-0.055) Total Protein 7.7 g/dL (6.4-8.2) Albumin 3.5 g/dL (3.4-5.0) Albumin/Globulin Ratio 0.8 (1.0-1.7) Lipase 129 U/L (73-393) Serum Test, Qualitative Negative (NEG) Urine Color Angelic Urine Clarity Clear Urine pH 7.0 Urine Specific [place] >=1.030 Urine Protein Negative mg/dL (NEG-TRACE) Urine Glucose (UA) Negative mg/dL (NEG) Urine Ketones (Stick) Negative mg/dL (NEG) Urine Blood Negative (NEG) Urine Nitrite Negative (NEG) Urine Bilirubin Negative (NEG) Urine Urobilinogen Dipstick 1.0 mg/dL (0.2 mg/dL) Urine Leukocyte Esterase Negative (NEG) Urine RBC Occ /HPF (0-2) Urine WBC 5-10 /HPF (0-4) Urine Squamous Epithelial Cells Few /LPF Urine Bacteria 0 /HPF (0-FEW) Urine Mucus Mod /LPF Heparin Anti-Xa Act, Unfractionated > 1.10 IU/mL (0.30-0.70) > 1.10 IU/mL (0.30-0.70) Test 10/17/17 14:10 Heparin Anti-Xa Act, Unfractionated 0.78 IU/mL (0.30-0.70) Laboratory Tests Test 10/16/17 19:50 10/17/17 00:42 10/17/17 08:05 10/17/17 14:10 Urine Color Angelic Urine Clarity Clear Urine pH 7.0 Urine Specific [place] >=1.030 Urine Protein Negative mg/dL (NEG-TRACE) Urine Glucose (UA) Negative mg/dL (NEG) Urine Ketones (Stick) Negative mg/dL (NEG) Urine Blood Negative (NEG) Urine Nitrite Negative (NEG) Urine Bilirubin Negative (NEG) Urine Urobilinogen Dipstick 1.0 mg/dL (0.2 mg/dL) Urine Leukocyte Esterase Negative (NEG) Urine RBC Occ /HPF (0-2) Urine WBC 5-10 /HPF (0-4) Urine Squamous Epithelial Cells Few /LPF Urine Bacteria 0 /HPF (0-FEW) Urine Mucus Mod /LPF White Blood Count 6.7 x10^3/uL (4.0-11.0) Red Blood Count 4.18 x10^6/uL (3.50-5.40) Hemoglobin 11.7 g/dL (12.0-15.5) Hematocrit 35.2 % (36.0-47.0) Mean Corpuscular Volume 84 fL (79-100) Mean Corpuscular Hemoglobin 28 pg (25-35) Mean Corpuscular Hemoglobin Concent 33 g/dL (31-37) Red Cell Distribution Width 12.9 % (11.5-14.5) Platelet Count 193 x10^3/uL (140-400) Neutrophils (%) (Auto) 54 % (31-73) Lymphocytes (%) (Auto) 30 % (24-48) Monocytes (%) (Auto) 12 % (0-9) Eosinophils (%) (Auto) 4 % (0-3) Basophils (%) (Auto) 1 % (0-3) Neutrophils # (Auto) 3.6 x10^3uL (1.8-7.7) Lymphocytes # (Auto) 2.0 x10^3/uL (1.0-4.8) Monocytes # (Auto) 0.8 x10^3/uL (0.0-1.1) Eosinophils # (Auto) 0.3 x10^3/uL (0.0-0.7) Basophils # (Auto) 0.0 x10^3/uL (0.0-0.2) Heparin Anti-Xa Act, Unfractionated > 1.10 IU/mL (0.30-0.70) > 1.10 IU/mL (0.30-0.70) 0.78 IU/mL (0.30-0.70) Sodium Level 137 mmol/L (136-145) Potassium Level 3.9 mmol/L (3.5-5.1) Chloride Level 102 mmol/L (98-107) Carbon Dioxide Level 25 mmol/L (21-32) Anion Gap 10 (6-14) Blood Urea Nitrogen 10 mg/dL (7-20) Creatinine 0.8 mg/dL (0.6-1.0) Estimated GFR (Cockcroft-Gault) 109.6 Glucose Level 88 mg/dL (70-99) Calcium Level 8.2 mg/dL (8.5-10.1) Medications Active Scripts Medications Dose Route/Sig Max Daily Dose Days Date Category Miralax (Polyethylene Glycol 3350) 17 Gm Powd.pack 1 Packet PO DAILY 10/15/17 Rx Impression . NOTE DICTATED HOME IN AM ON ELIQUIS SEE ORDERS THANKS TANNER INMAN MD Oct 17, 2017 16:38
--- NOTE | 2017-10-17 17:46 | PDOC ---
Provider Note Provider Note Hem/Onc consult 1. PE - due to control pills agree with current anticoagulation Ordered hypercoag labs b/c of family history. see dictation [id number] JOHNATHAN GUADALUPE MD Oct 17, 2017 17:46
[2017-10-17] MEDS: APIXABAN 5 MG TABLET. PO SCH (21:57)
--- NOTE | 2017-10-17 22:11 | CONS ---
DATE OF CONSULTATION: 10/17/2017 ATTENDING PHYSICIAN: Dr. Tan Solorzano. REASON FOR CONSULTATION: The patient seen in pulmonary consultation at the request of Dr. Solorzano for abnormal CT of the chest revealing pulmonary embolism. HISTORY OF PRESENT ILLNESS: The patient is a 22-year-old who was on an airplane ride. She is also on control pills. She returned on Friday, started experiencing some pleuritic type of pain, Friday and Friday. She came in yesterday with increasing pain, unable to take a deep breath. She was evaluated and underwent CT angiogram. I reviewed the CT, there is bilateral pulmonary emboli. There is also early pulmonary infarct on the inferior right lower lobe. The patient has had no previous difficulty with thrombophilia. There is no documented family history of thrombophilia, though her grandmother had pulmonary embolism and from the PE. PAST MEDICAL HISTORY: Unremarkable. PAST SURGICAL HISTORY: None. HOME MEDICATIONS: control pills. SOCIAL HISTORY: She is a student at [employer]. She denies any alcohol. REVIEW OF SYSTEMS: As indicated above, otherwise, a 10-point system was reviewed and negative. PHYSICAL EXAMINATION: GENERAL: The patient was hemodynamically stable. She was in the intensive care unit, receiving IV heparin. No respiratory distress. HEENT: Eyes, the sclerae were nonicteric. NECK: Jugular venous distention was not elevated. No lymphadenopathy. CHEST: Full expansion. LUNGS: Decreased breath sounds. The patient is unable to take a nice deep breath as a consequence of the pleuritic type of discomfort. ABDOMEN: Soft, nontender, nondistended. EXTREMITIES: No clubbing, cyanosis or edema. NEUROLOGIC: The patient was awake, alert, following commands. A detailed neuro exam was not performed. CT chest reviewed, bilateral pulmonary emboli. CT abdomen, no intra-abdominal pelvic process was seen. Lower extremity venous Dopplers were negative for DVT. LABORATORY DATA: Reviewed. INR was 1.1. D-dimer was positive. White count was normal. Hemoglobin and hematocrit were noted. IMPRESSION: 1. Acute pulmonary embolism with pulmonary infarct. 2. Pleurisy secondary to pulmonary infarct. 3. Dyspnea secondary to above. PLAN: 1. The patient has improved since admission, control the pain. 2. Initiate Eliquis. 3. Discontinue heparin. 4. No need for antibiotics. 5. Home in the a.m. if she continues to improve. I do appreciate the privilege in sharing in the patient's care. TANNER INMAN MD DR: NIKKO/thomas JOB#: [id number] / [id number]
--- NOTE | 2017-10-17 23:24 | CONS ---
DATE OF CONSULTATION: 10/17/2017 REQUESTING PHYSICIAN: Dr. Claribel Allen. REASON FOR CONSULTATION: Pulmonary embolism. HISTORY OF PRESENT ILLNESS: The patient is a 22-year-old -N[place]alese female who presented to [facility] on 10/16/2017 with complaints of sharp pains in the right side of her chest. She reports that it was significant after she returned from a plane ride from [place] on 10/13/2017. She has also had exertional dyspnea. She has been taking control pills. She had tachycardia with heart rate of 105. She underwent CT angiogram of the chest on 10/16/2017 that revealed bilateral pulmonary emboli. Venous Doppler of the lower extremities on 10/16/2017 was negative for DVT. CT scan of the abdomen and pelvis for evaluation of right upper quadrant pain was negative for any acute process. She was admitted to the ICU, started on heparin with plans to transition to Eliquis. I was asked to see the patient for further recommendations. PAST MEDICAL HISTORY: No significant past medical history. SOCIAL HISTORY: No smoking or alcohol abuse. FAMILY HISTORY: The patient's grandmother had thromboembolic event. REVIEW OF SYSTEMS: A 12-point review of system was performed. Pertinent positives are mentioned in the history of present illness. Rest of the system review is negative. PHYSICAL EXAMINATION: GENERAL APPEARANCE: The patient is a 22-year-old -N[place]alese female who is in no acute cardiorespiratory distress. VITAL SIGNS: Blood pressure 105/56, temperature 98.3. HEENT: Head: Atraumatic, normocephalic. Eyes: No icterus. NECK: Supple. CHEST: Bilaterally symmetrical. HEART: S1, S2 normal. ABDOMEN: Soft, nontender. CENTRAL NERVOUS SYSTEM: No focal deficits. LYMPHATICS: No lymphadenopathy. SKIN: No rashes. PSYCHOLOGIC: Mood and affect are appropriate. MUSCULOSKELETAL: No joint effusions. LABORATORY DATA: WBC 6.7, hemoglobin 11.7, platelet count 193. Creatinine 0.8. IMPRESSION AND PLAN: 1. Acute pulmonary embolism diagnosed on 10/16/2017. Venous Doppler is negative for deep vein thrombosis in the lower extremities. This is a provoked event due to control pills. I have advised her to stop control pills and counseled her consult her brewery pumper regarding alternate forms of contraception. She has been started on heparin with plans to transition to Eliquis and I agree with the plan. I discussed with Dr. Amado Ortiz, who will be following the patient as an outpatient. 2. Chest pain due to pulmonary embolism. Continue to monitor. I discussed with the patient and her mother. I discussed with Dr. Ortiz and registered nurse. JOHNATHAN GUADALUPE MD DR: ANISA/thomas JOB#: [id number] / [id number] ANNE
[2017-10-18 03:47] LABS: HEMATOCRIT 32.8 % (36.0-47.0); RED BLOOD COUNT 3.95 x10^6/uL (3.50-5.40); RED CELL DISTRIBUTION WIDTH 12.7 % (11.5-14.5); WHITE BLOOD COUNT 5.6 x10^3/uL (4.0-11.0)
[2017-10-18 04:00] VITALS: BP 103/56
[2017-10-18 07:45] VITALS: BP 119/69
[2017-10-18] MEDS: FAMOTIDINE 20 MG TABLET. PO SCH (09:05)
[2017-10-18] MEDS: APIXABAN 5 MG TABLET. PO SCH (09:05)
[2017-10-18 10:30] VITALS: BP 96/56
--- NOTE | 2017-10-18 12:35 | PDOC ---
PULMONARY PROGRESS NOTES Vitals Vital Signs Date Time Temp Pulse Resp B/P (MAP) Pulse Ox O2 Delivery O2 Flow Rate FiO2 10/18/17 10:30 98.2 83 18 96/56 (69) 98 Room Air 98.2 Cardiovascular: S1, S2 Labs Laboratory Tests Test 10/16/17 15:20 10/16/17 19:05 10/16/17 19:50 10/17/17 00:42 White Blood Count 6.3 x10^3/uL (4.0-11.0) 6.7 x10^3/uL (4.0-11.0) Red Blood Count 4.39 x10^6/uL (3.50-5.40) 4.18 x10^6/uL (3.50-5.40) Hemoglobin 12.2 g/dL (12.0-15.5) 11.7 g/dL (12.0-15.5) Hematocrit 36.4 % (36.0-47.0) 35.2 % (36.0-47.0) Mean Corpuscular Volume 83 fL (79-100) 84 fL (79-100) Mean Corpuscular Hemoglobin 28 pg (25-35) 28 pg (25-35) Mean Corpuscular Hemoglobin Concent 34 g/dL (31-37) 33 g/dL (31-37) Red Cell Distribution Width 12.6 % (11.5-14.5) 12.9 % (11.5-14.5) Platelet Count 217 x10^3/uL (140-400) 193 x10^3/uL (140-400) Neutrophils (%) (Auto) 66 % (31-73) 54 % (31-73) Lymphocytes (%) (Auto) 24 % (24-48) 30 % (24-48) Monocytes (%) (Auto) 7 % (0-9) 12 % (0-9) Eosinophils (%) (Auto) 3 % (0-3) 4 % (0-3) Basophils (%) (Auto) 0 % (0-3) 1 % (0-3) Neutrophils # (Auto) 4.2 x10^3uL (1.8-7.7) 3.6 x10^3uL (1.8-7.7) Lymphocytes # (Auto) 1.5 x10^3/uL (1.0-4.8) 2.0 x10^3/uL (1.0-4.8) Monocytes # (Auto) 0.4 x10^3/uL (0.0-1.1) 0.8 x10^3/uL (0.0-1.1) Eosinophils # (Auto) 0.2 x10^3/uL (0.0-0.7) 0.3 x10^3/uL (0.0-0.7) Basophils # (Auto) 0.0 x10^3/uL (0.0-0.2) 0.0 x10^3/uL (0.0-0.2) Prothrombin Time 13.3 SEC (11.7-14.0) Prothromb Time International Ratio 1.1 (0.8-1.1) Activated Partial Thromboplast Time 27 SEC (24-38) D-Dimer (Liz) 2.03 ug/mlFEU (0.00-0.50) Sodium Level 140 mmol/L (136-145) 137 mmol/L (136-145) Potassium Level 3.4 mmol/L (3.5-5.1) 3.9 mmol/L (3.5-5.1) Chloride Level 104 mmol/L (98-107) 102 mmol/L (98-107) Carbon Dioxide Level 25 mmol/L (21-32) 25 mmol/L (21-32) Anion Gap 11 (6-14) 10 (6-14) Blood Urea Nitrogen 9 mg/dL (7-20) 10 mg/dL (7-20) Creatinine 0.9 mg/dL (0.6-1.0) 0.8 mg/dL (0.6-1.0) Estimated GFR (Cockcroft-Gault) 95.6 109.6 BUN/Creatinine Ratio 10 (6-20) Glucose Level 112 mg/dL (70-99) 88 mg/dL (70-99) Calcium Level 8.9 mg/dL (8.5-10.1) 8.2 mg/dL (8.5-10.1) Magnesium Level 2.1 mg/dL (1.8-2.4) Total Bilirubin 0.6 mg/dL (0.2-1.0) Aspartate Amino Transf (AST/SGOT) 11 U/L (15-37) Alanine Aminotransferase (ALT/SGPT) 12 U/L (14-59) Alkaline Phosphatase 55 U/L (46-116) Troponin I Quantitative < 0.017 ng/mL (0.000-0.055) Total Protein 7.7 g/dL (6.4-8.2) Albumin 3.5 g/dL (3.4-5.0) Albumin/Globulin Ratio 0.8 (1.0-1.7) Lipase 129 U/L (73-393) Serum Test, Qualitative Negative (NEG) Nasal Screen MRSA (PCR) Negative (Negative) Urine Color Angelic Urine Clarity Clear Urine pH 7.0 Urine Specific [place] >=1.030 Urine Protein Negative mg/dL (NEG-TRACE) Urine Glucose (UA) Negative mg/dL (NEG) Urine Ketones (Stick) Negative mg/dL (NEG) Urine Blood Negative (NEG) Urine Nitrite Negative (NEG) Urine Bilirubin Negative (NEG) Urine Urobilinogen Dipstick 1.0 mg/dL (0.2 mg/dL) Urine Leukocyte Esterase Negative (NEG) Urine RBC Occ /HPF (0-2) Urine WBC 5-10 /HPF (0-4) Urine Squamous Epithelial Cells Few /LPF Urine Bacteria 0 /HPF (0-FEW) Urine Mucus Mod /LPF Heparin Anti-Xa Act, Unfractionated > 1.10 IU/mL (0.30-0.70) Test 10/17/17 08:05 10/17/17 14:10 10/17/17 20:45 10/18/17 03:05 Heparin Anti-Xa Act, Unfractionated > 1.10 IU/mL (0.30-0.70) 0.78 IU/mL (0.30-0.70) 0.38 IU/mL (0.30-0.70) White Blood Count 5.6 x10^3/uL (4.0-11.0) Red Blood Count 3.95 x10^6/uL (3.50-5.40) Hemoglobin 11.0 g/dL (12.0-15.5) Hematocrit 32.8 % (36.0-47.0) Mean Corpuscular Volume 83 fL (79-100) Mean Corpuscular Hemoglobin 28 pg (25-35) Mean Corpuscular Hemoglobin Concent 34 g/dL (31-37) Red Cell Distribution Width 12.7 % (11.5-14.5) Platelet Count 187 x10^3/uL (140-400) Laboratory Tests Test 10/17/17 14:10 10/17/17 20:45 10/18/17 03:05 Heparin Anti-Xa Act, Unfractionated 0.78 IU/mL (0.30-0.70) 0.38 IU/mL (0.30-0.70) White Blood Count 5.6 x10^3/uL (4.0-11.0) Red Blood Count 3.95 x10^6/uL (3.50-5.40) Hemoglobin 11.0 g/dL (12.0-15.5) Hematocrit 32.8 % (36.0-47.0) Mean Corpuscular Volume 83 fL (79-100) Mean Corpuscular Hemoglobin 28 pg (25-35) Mean Corpuscular Hemoglobin Concent 34 g/dL (31-37) Red Cell Distribution Width 12.7 % (11.5-14.5) Platelet Count 187 x10^3/uL (140-400) Medications Active Scripts Medications Dose Route/Sig Max Daily Dose Days Date Category Miralax (Polyethylene Glycol 3350) 17 Gm Powd.pack 1 Packet PO DAILY 10/15/17 Rx Impression . IMPRESSION: 1. Acute pulmonary embolism with pulmonary infarct. 2. Pleurisy secondary to pulmonary infarct. 3. Dyspnea secondary to above. Plan . PLAN: 1. The patient has improved since admission, control the pain. 2. Initiate Eliquis. 3. Discontinue heparin. 4. No need for antibiotics. 5. Home in the a.m. if she continues to improve. TANNER INMAN MD Oct 18, 2017 12:35
--- NOTE | 2017-10-18 12:48 | PDOC ---
PROGRESS NOTES Chief Complaint Chief Complaint Acute chest pain with pleuris BIlat pulm embolism with infarction Embolism, not provoked No DVT seen on LE US History of Present Illness History of Present Illness Pt seen and examined today at the bedside Patient reports feeling better and desires d/c home Hem work up for coagulopathy in progress Vitals Vitals Vital Signs Date Time Temp Pulse Resp B/P (MAP) Pulse Ox O2 Delivery O2 Flow Rate FiO2 10/18/17 10:30 98.2 83 18 96/56 (69) 98 Room Air 98.2 Physical Exam Physical Exam Eyes: Sclera anicteric Neuro: ENGRAVER MACHINE II-XII grossly intact b/l General: Alert, Oriented X3, Cooperative, No acute distress Heart: Regular rate, Normal S1, Normal S2, No murmurs Lungs: Clear, Other (No wheezing or crackels) Abdomen: Normal bowel sounds, Soft, No tenderness Extremities: No clubbing, No cyanosis, No edema, No tenderness/swelling Skin: No rashes, No breakdown Labs LABS Laboratory Tests Test 10/17/17 14:10 10/17/17 20:45 10/18/17 03:05 Heparin Anti-Xa Act, Unfractionated 0.78 IU/mL (0.30-0.70) 0.38 IU/mL (0.30-0.70) White Blood Count 5.6 x10^3/uL (4.0-11.0) Red Blood Count 3.95 x10^6/uL (3.50-5.40) Hemoglobin 11.0 g/dL (12.0-15.5) Hematocrit 32.8 % (36.0-47.0) Mean Corpuscular Volume 83 fL (79-100) Mean Corpuscular Hemoglobin 28 pg (25-35) Mean Corpuscular Hemoglobin Concent 34 g/dL (31-37) Red Cell Distribution Width 12.7 % (11.5-14.5) Platelet Count 187 x10^3/uL (140-400) Review of Systems Review of Systems GEN: Denies Fevers, Chills, Sweats CV: Denies CP RESP: Denies shortness of breath GI: Denies N/V Assessment and Plan Assessmemt and Plan Problems Medical Problems: (1) Pulmonary embolism Status: Acute Assessment: Acute chest pain with pleuris BIlat pulm embolism with infarction Embolism, not provoked No DVT seen on LE US Plan: Possible D/C home today, if okay with subspecialty Rx written for Eliquis Rx for Flagyl Hypercoagulable workup in progress F/u with PCP in 1 week Problems: Comment Review of Relevant I have reviewed the following items ya (where applicable) has been applied. Labs Laboratory Tests Test 10/16/17 15:20 10/16/17 19:05 10/16/17 19:50 10/17/17 00:42 White Blood Count 6.3 x10^3/uL (4.0-11.0) 6.7 x10^3/uL (4.0-11.0) Red Blood Count 4.39 x10^6/uL (3.50-5.40) 4.18 x10^6/uL (3.50-5.40) Hemoglobin 12.2 g/dL (12.0-15.5) 11.7 g/dL (12.0-15.5) Hematocrit 36.4 % (36.0-47.0) 35.2 % (36.0-47.0) Mean Corpuscular Volume 83 fL (79-100) 84 fL (79-100) Mean Corpuscular Hemoglobin 28 pg (25-35) 28 pg (25-35) Mean Corpuscular Hemoglobin Concent 34 g/dL (31-37) 33 g/dL (31-37) Red Cell Distribution Width 12.6 % (11.5-14.5) 12.9 % (11.5-14.5) Platelet Count 217 x10^3/uL (140-400) 193 x10^3/uL (140-400) Neutrophils (%) (Auto) 66 % (31-73) 54 % (31-73) Lymphocytes (%) (Auto) 24 % (24-48) 30 % (24-48) Monocytes (%) (Auto) 7 % (0-9) 12 % (0-9) Eosinophils (%) (Auto) 3 % (0-3) 4 % (0-3) Basophils (%) (Auto) 0 % (0-3) 1 % (0-3) Neutrophils # (Auto) 4.2 x10^3uL (1.8-7.7) 3.6 x10^3uL (1.8-7.7) Lymphocytes # (Auto) 1.5 x10^3/uL (1.0-4.8) 2.0 x10^3/uL (1.0-4.8) Monocytes # (Auto) 0.4 x10^3/uL (0.0-1.1) 0.8 x10^3/uL (0.0-1.1) Eosinophils # (Auto) 0.2 x10^3/uL (0.0-0.7) 0.3 x10^3/uL (0.0-0.7) Basophils # (Auto) 0.0 x10^3/uL (0.0-0.2) 0.0 x10^3/uL (0.0-0.2) Prothrombin Time 13.3 SEC (11.7-14.0) Prothromb Time International Ratio 1.1 (0.8-1.1) Activated Partial Thromboplast Time 27 SEC (24-38) D-Dimer (Liz) 2.03 ug/mlFEU (0.00-0.50) Sodium Level 140 mmol/L (136-145) 137 mmol/L (136-145) Potassium Level 3.4 mmol/L (3.5-5.1) 3.9 mmol/L (3.5-5.1) Chloride Level 104 mmol/L (98-107) 102 mmol/L (98-107) Carbon Dioxide Level 25 mmol/L (21-32) 25 mmol/L (21-32) Anion Gap 11 (6-14) 10 (6-14) Blood Urea Nitrogen 9 mg/dL (7-20) 10 mg/dL (7-20) Creatinine 0.9 mg/dL (0.6-1.0) 0.8 mg/dL (0.6-1.0) Estimated GFR (Cockcroft-Gault) 95.6 109.6 BUN/Creatinine Ratio 10 (6-20) Glucose Level 112 mg/dL (70-99) 88 mg/dL (70-99) Calcium Level 8.9 mg/dL (8.5-10.1) 8.2 mg/dL (8.5-10.1) Magnesium Level 2.1 mg/dL (1.8-2.4) Total Bilirubin 0.6 mg/dL (0.2-1.0) Aspartate Amino Transf (AST/SGOT) 11 U/L (15-37) Alanine Aminotransferase (ALT/SGPT) 12 U/L (14-59) Alkaline Phosphatase 55 U/L (46-116) Troponin I Quantitative < 0.017 ng/mL (0.000-0.055) Total Protein 7.7 g/dL (6.4-8.2) Albumin 3.5 g/dL (3.4-5.0) Albumin/Globulin Ratio 0.8 (1.0-1.7) Lipase 129 U/L (73-393) Serum Test, Qualitative Negative (NEG) Nasal Screen MRSA (PCR) Negative (Negative) Urine Color Angelic Urine Clarity Clear Urine pH 7.0 Urine Specific [place] >=1.030 Urine Protein Negative mg/dL (NEG-TRACE) Urine Glucose (UA) Negative mg/dL (NEG) Urine Ketones (Stick) Negative mg/dL (NEG) Urine Blood Negative (NEG) Urine Nitrite Negative (NEG) Urine Bilirubin Negative (NEG) Urine Urobilinogen Dipstick 1.0 mg/dL (0.2 mg/dL) Urine Leukocyte Esterase Negative (NEG) Urine RBC Occ /HPF (0-2) Urine WBC 5-10 /HPF (0-4) Urine Squamous Epithelial Cells Few /LPF Urine Bacteria 0 /HPF (0-FEW) Urine Mucus Mod /LPF Heparin Anti-Xa Act, Unfractionated > 1.10 IU/mL (0.30-0.70) Test 10/17/17 08:05 10/17/17 14:10 10/17/17 20:45 10/18/17 03:05 Heparin Anti-Xa Act, Unfractionated > 1.10 IU/mL (0.30-0.70) 0.78 IU/mL (0.30-0.70) 0.38 IU/mL (0.30-0.70) White Blood Count 5.6 x10^3/uL (4.0-11.0) Red Blood Count 3.95 x10^6/uL (3.50-5.40) Hemoglobin 11.0 g/dL (12.0-15.5) Hematocrit 32.8 % (36.0-47.0) Mean Corpuscular Volume 83 fL (79-100) Mean Corpuscular Hemoglobin 28 pg (25-35) Mean Corpuscular Hemoglobin Concent 34 g/dL (31-37) Red Cell Distribution Width 12.7 % (11.5-14.5) Platelet Count 187 x10^3/uL (140-400) Laboratory Tests Test 10/17/17 14:10 10/17/17 20:45 10/18/17 03:05 Heparin Anti-Xa Act, Unfractionated 0.78 IU/mL (0.30-0.70) 0.38 IU/mL (0.30-0.70) White Blood Count 5.6 x10^3/uL (4.0-11.0) Red Blood Count 3.95 x10^6/uL (3.50-5.40) Hemoglobin 11.0 g/dL (12.0-15.5) Hematocrit 32.8 % (36.0-47.0) Mean Corpuscular Volume 83 fL (79-100) Mean Corpuscular Hemoglobin 28 pg (25-35) Mean Corpuscular Hemoglobin Concent 34 g/dL (31-37) Red Cell Distribution Width 12.7 % (11.5-14.5) Platelet Count 187 x10^3/uL (140-400) Microbiology 10/16/17 Urine Culture - Preliminary, Resulted 10/16/17 Urine Culture Result 1 (NIKKI) - Preliminary, Resulted Medications Current Medications Ketorolac Tromethamine (Toradol) 30 mg 1X ONCE IV Last administered on 15:26; Start 10/16/17 at 15:15; Stop 10/16/17 at 15:16; Status DC Acetaminophen/ Hydrocodone Bitart (Lortab 5/325) 1 tab 1X ONCE PO Last administered on 10/16/17 15:25; Start 10/16/17 at 15:15; Stop 10/16/17 at 15:16 ; Status DC Iohexol (Omnipaque 300 Mg/ml) 75 ml 1X ONCE IV Last administered on 10/16/17 17:03; Start 10/16/17 at 16:45; Stop 10/16/17 at 16:46; Status DC Info (Do NOT chart on this entry -- for MONITORING) 1 each PRN DAILY PRN MC SEE COMMENTS; Start 10/16/17 at 16:45; Stop 10/18/17 at 16:44 Heparin Sodium (Porcine) (Heparin Sodium) 4,700 unit 1X ONCE IV Last administered on 10/16/17 18:11; Start 10/16/17 at 18:00; Stop 10/16/17 at 18:01 ; Status DC Heparin Sodium/ Dextrose 500 ml @ 0 mls/hr CONT PRN IV SEE I/O RECORD Last administered on 10/16/17 18:13; Start 10/16/17 at 18:00; Stop 10/17/17 at 16:58 ; Status DC Heparin Sodium (Porcine) (Heparin Sodium) 1,800 unit PRN Q6HRS PRN IV FOR UFH LEVEL LESS THAN 0.2; Start 10/16/17 at 18:00; Status Cancel Heparin Sodium (Porcine) (Heparin Sodium) 900 unit PRN Q6HRS PRN IV FOR UFH LEVEL 0.2 - 0.29; Start 10/16/17 at 18:00; Status Cancel Ondansetron HCl (Zofran) 4 mg PRN Q8HRS PRN IV NAUSEA/VOMITING; Start 10/16/17 at 18:00; Stop 10/17/17 at 17:59; Status DC Fentanyl Citrate (Fentanyl 2ml Vial) 50 mcg PRN Q2HR PRN IV PAIN Last administered on 10/17/17 05:39; Start 10/16/17 at 18:00; Stop 10/17/17 at 17:59 ; Status DC Info (Anti-Coagulation Monitoring By Pharmacy) 1 each PRN DAILY PRN MC SEE COMMENTS; Start 10/16/17 at 18:00 Trimethoprim/ Sulfamethoxazole (Bactrim Ds) 1 tab BID PO Last administered on 10/17/17 09:23; Start 10/16/17 at 21:00; Stop 10/17/17 at 12:23; Status DC Rivaroxaban (Xarelto) 15 mg BID PO Last administered on 10/16/17 22:56; Start 10/16/17 at 23:00; Stop 10/17/17 at 15:36; Status DC Acetaminophen/ Hydrocodone Bitart (Lortab 5/325) 1 tab PRN Q4HRS PRN PO SEVERE PAIN Last administered on 10/17/17 00:34; Start 10/16/17 at 22:30 Ceftriaxone Sodium 1 gm/ Dextrose 50 ml @ 100 mls/hr Q24H IV ; Start 10/17/17 at 12:30; Status Cancel Ceftriaxone Sodium (Rocephin) 1 gm Q24H IVP Last administered on 10/17/17 16: 01; Start 10/17/17 at 12:30; Stop 10/17/17 at 16:37; Status DC Multi-Ingredient Mouthwash/Gargle (Gi Cocktail Single Dose) 15 ml PRN 1X PRN SWSW CHEST PAIN Last administered on 10/17/17 13:01; Start 10/17/17 at 12:45 Famotidine (Pepcid) 20 mg BID PO Last administered on 10/18/17 09:05; Start 10/17/17 at 14:00 Apixaban (Eliquis) 10 mg BID PO Last administered on 10/18/17 09:05; Start at 21:00 Metronidazole (Flagyl) 500 mg Q8HRS PO ; Start 10/18/17 at 13:00 Active Scripts Active Miralax (Polyethylene Glycol 3350) 17 Gm Powd.pack 1 Packet PO DAILY Vitals/I & O Vital Sign - Last 24 Hours 10/17/17 10/17/17 10/17/17 10/17/17 16:00 19:00 20:27 23:00 Temp 98.3 98.8 98.9 98.3 98.8 98.9 Pulse 80 96 89 Resp 17 B/P (MAP) 105/56 (72) 96/49 (65) 115/65 (82) Pulse Ox 99 98 100 O2 Delivery Room Air Room Air Room Air Room Air 10/18/17 10/18/17 10/18/17 10/18/17 04:00 07:45 08:00 10:22 Temp 97.9 97.9 97.9 97.9 Pulse 89 94 Resp 17 18 B/P (MAP) 103/56 (72) 119/69 (86) Pulse Ox 98 100 O2 Delivery Room Air Room Air Room Air Room Air 10/18/17 10:30 Temp 98.2 98.2 Pulse 83 Resp 18 B/P (MAP) 96/56 (69) Pulse Ox 98 O2 Delivery Room Air Intake and Output 10/17/17 10/17/17 10/18/17 15:00 23:00 07:00 Intake Total 260 ml Output Total 300 ml Balance -300 ml 260 ml JEB TUCKER III DO Oct 18, 2017 12:48
[2017-10-18] MEDS ORDERED: metroNIDAZOLE 500 MG TABLET PO SCH (13:00)
== END 2017-10-18 13:00 | disposition home or self-care (01) | DRG 176 ==
LOC: ER 14:52 → 1 WEST ICU 17:49 → 5 NORTH 10-17 17:31
PROVIDERS: ADMIT Family Medicine; ATTEND Family Medicine
DX: I26.99 Other pulmonary embolism without acute cor pulmonale (principal); Z79.899 Other long term (current) drug therapy
CPT/HCPCS: 36415; 71010; 71275; 74177; 80048; 80053; 81001; 83690; 83735; 84484; 84703; 85025; 85027; 85379; 85520; 85610; 85730; 87086; 87641; 93005; 93970; J0696; J1644; J1885; J3010; Q9967

== ENCOUNTER → 2017-12-12 | Outpatient (CLI) | payer OTHER ==
[~2017-12-12] MED LIST changes: +CONTRAST GIVEN MC; +IOHEXOL 300 MG/ML 100ML VIAL. IV; -POLY17PO29 PO
== END | disposition home or self-care (01) ==
LOC: CT 15:47
DX: I26.99 Other pulmonary embolism without acute cor pulmonale (principal); Z86.711 Personal history of pulmonary embolism
CPT/HCPCS: 71275; Q9967